=== PATIENT | male | born 1960 | race Caucasian/White ===

== ENCOUNTER 2024-07-03 15:54 | Inpatient (IN) ==
[2024-07-03 16:40] LABS: Basophils # (auto) 0.04 K/uL (0.00-0.20); Basophils % (auto) 0.5 %; Eosinophils # (auto) 0.14 K/uL (0.00-0.50); Eosinophils % (auto) 1.7 %; Hematocrit (blood only) 36.5 % (42.0-52.0); Hemoglobin 12.2 g/dl (14.0-18.0); Immature Granulocytes # (auto) 0.04 K/uL (0.01-0.20); Immature Granulocytes % (auto) 0.5 %; Lymphocytes # (auto) 1.71 K/uL (1.20-3.40); Mean Corpuscular Hgb Conc 33.4 g/dL (32.0-36.0); Mean Corpuscular Volume 83.9 fL (80.0-100.0); Mean Platelet Volume 10.2 fL (9.4-12.4); Monocytes % (auto) 7.4 %; Neutrophils # (auto) 5.62 K/uL (1.40-6.50); Neutrophils % (auto) 68.9 %; Platelet Count 296 K/uL (130-400); RDW Standard Deviation 40.1 fL (36.4-46.3); Red Blood Count 4.35 M/uL (4.70-6.10); White Blood Count 8.15 K/ul (4.8-10.8)
[2024-07-03 17:43] LABS: Albumin Globulin Ratio 1.1 (0.9-2); Albumin Level 4.4 gm/dl (3.4-5.0); BUN Creatinine Ratio 13.3 (10-20); Bilirubin,Total 0.6 mg/dl (0.2-1.0); Calcium 10.5 mg/dl (8.6-10.3); Globulin 3.9 gm/dl (2.5-4.0); Potassium 4.2 mmol/L (3.5-5.1); Total Protein 8.3 gm/dl (6.0-8.3)
--- NOTE | 2024-07-03 18:45 | History & Physical Report ---
Date of Service July 03, 2024 Assessment & Plan (1) Urinary retention: (2) Enlarged prostate: Plan: Patient is 64 year old male without prior diagnosed chronic medical conditions presented to ER with c/o abnormal outpatient labs. Outpatient labs on 07/02/24: BUN: 39, Cr: 2.5, Glucose: 598, A1c: 16, TSH: 3.1, H/H: 11.5/36. 07/02/24 PSA: 4.2 (reference range <4.1) 07/02/24 CT abdomen pelvis: IMPRESSION 1. Bilateral mild hydroureteronephrosis with marked distension of the bladder. A neurogenic bladder or bladder outlet obstruction should be considered. 2. prostate measuring 4.6 x 5.0 x 3.7 cm. 3. 7.6 cm complex cystic right renal lesion. Further evaluation with renal protocol CT or MRI abdomen with and without contrast is recommended. Today in the ER afebrile, P: 110, R: 20, BP 143/92, 96% on room air No leukocytosis, H/H: 12/36, BUN: 34,: 2.5, glucose: 464, Ca: 10.5 UA not consistent with infection In ER Ramos catheter placed Initial output 2 L Patient has continued to have additional 650 mL urine output that is now with hematuria. Suspect likely from trauma of Ramos insertion. Continue Ramos and monitor output and hematuria Plan to start Flomax Urology consult (3) JOSE (acute kidney injury): Plan: BUN: 34, creatinine: 2.5 Likely secondary to obstruction Ramos cath placed and is draining Monitor renal functions, avoid nephrotoxic agents when possible Consider nephrology consult if no improvement (4) Renal lesion: Plan: 07/02/24 CT abdomen pelvis: IMPRESSION 1. Bilateral mild hydroureteronephrosis with marked distension of the bladder. A neurogenic bladder or bladder outlet obstruction should be considered. 2. prostate measuring 4.6 x 5.0 x 3.7 cm. 3. 7.6 cm complex cystic right renal lesion. Further evaluation with renal protocol CT or MRI abdomen with and without contrast is recommended. Obtain renal CT to further assess Urology consult (5) Hyperglycemia: Plan: Random glucose: 464. VBG: pH: 7.48. normal bicarb and no anion gap A1c: 16 on 07/02/24 Uncontrolled newly diagnosed diabetes 1L NSS Start basal bolus insulin Glycemic pharmacy consult mdm developer (6) Elevated blood pressure reading: Plan: In ER pt hypertensive BP 143/92, 165/106 Patient reports is anxious and was having discomfort prior to Ramos placement. In clinic yesterday BP 136/89, Pulse: 102 Monitor BP may need to add antihypertensive agent #Tachycardia Appears sinus tachycardia on monitor EKG obtained and at that time sinus rhythm, rate 97 per my interpretation Denies CP, SOB, palpitations DVT Prophylaxis SCDs for now given hematuria Admit telemetry Full Code as per discussion with pt, however reports would not want prolonged intubation/ventilation if poor prognosis Just established with [facility] clinic for routine care Pt was seen and care coordinated with Dr Dennis. See addendum I spent a total of 75 minutes reviewing notes, outpatient records, labs, medication, coordinating, documenting and providing care for this patient excluding time spent in the performance of separately billed services and excluding time spent by another provider/QHP. History of Present Illness Chief Complaint: abnormal labs Primary Care Provider: Nicholas Meza MD Patient is 64 year old male without prior diagnosed chronic medical conditions presented to ER with c/o abnormal outpatient labs. Per outpatient chart review patient was seen as new patient yesterday 07/02/24 at [facility] after not being seen for years. Patient reports 30 pound weight loss over past year. States food not tasting good to him anymore. He reports he suspected his BSG elevated as he has been having some intermittent blurry vision and having pain and tingling in both feet for months. Since he suspected elevated glucose he has been trying to avoid sugar and eat more vegetables but reports does not like the taste of vegetables. He states he just doesn't want to prepare meals so often doesn't eat much. He states he has been under a lot of stress over the past several years with the passing of his father and stress with his father's estate. Reports been having constipation for past 6-7 months. Reported urinary incontinence for past several months. States abdomen only feels uncomfortable when dog jumps on his abdomen. He states has been feeling more fatigued and generally more weak. Yesterday in outpatient clinic there was concern for palpated abdominal mass and concern for undiagnosed DM and labs and CT abd/pelvis ordered. Today labs reviewed and patient referred to ER for JOSE, hyperglycemia, and CT abd/pelvis with bladder distension and concern for obstruction. Denies fever/chills, diaphoresis, N/V/D, JOINER, dizziness, syncope, neck pain, CP, SOB, palpitations, cough, sore throat, rhinorrhea, back pain, extremity edema, rashes, dysuria, hematuria. Allergies Allergy/AdvReac Type Severity Reaction Status Date / Time No Known Allergies Allergy Unverified 07/03/24 18:41 Home Medications Medication Instructions Recorded Confirmed Type dflxuaupivlj-tal-[id number] acid-vit 1 tab PO DAILY 07/03/24 07/03/24 History K-lycop 400 mcg-20 mcg-370 mcg tablet (Men's 50 Plus Multivitamin) Past Med/Surg History Problem List (Updated 07/03/24 @ 23:20 by Abdias Villarreal MD) JOSE (acute kidney injury) (Acute) Hyperglycemia (Acute) Elevated blood pressure reading Renal lesion Enlarged prostate Urinary retention Surgical History History of wisdom tooth extraction Family History Father Prostate cancer Brother Prostate cancer Mother Lung cancer Social History Smoking Status: Never smoker Hx Alcohol Use: No Hx Substance Use: No Preferred Language: Albanian 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: No Beliefs That Will Affect Care: None Current Living Situation: Alone Feels Safe at Home: Yes Assistive Devices: Glasses Review of Systems Review of Systems: All systems reviewed & are unremarkable except as noted in HPI & below Physical Exam Physical Exam: General: +anxious and somewhat tearful and voices is overwhelmed with recent events but otherwise no distress, WDWN Head: normocephalic, atraumatic Eyes: conjunctiva non-injected, anicteric ENT: normal inspection external ears, nose, mucous membranes dry Neck: supple, trachea midline, non-tender Lungs: clear, no respiratory distress, no wheezing/rhonchi/rales CV: tachycardic, rate 104, regular rhythm, no murmur, no pretibial edema Abd: normal BS, soft, non-tender to palpation at this time. +Ramos catheter in place with noted hematuria, no CVA tenderness Ext: no cyanosis, no calf tenderness Neuro: A&O x 3, no focal deficits noted, anxious affect Skin: warm, dry Results & Data Results & Data Vital Signs (Past 12 Hours) Vital Signs Temp Pulse Pulse Resp BP BP Pulse Ox 07/03/24 18:08 99 H 07/03/24 18:03 103 H 18 172/104 H 99 07/03/24 15:58 36.8 C 110 H 20 143/92 H 96 O2 Del Method 07/03/24 18:08 07/03/24 18:03 07/03/24 15:58 Room Air Laboratory Results Short CBC 07/03/24 Range/Units 16:28 WBC 8.15 (4.8-10.8) K/ul Hgb 12.2 L (14.0-18.0) g/dl Hct 36.5 L (42.0-52.0) % Plt Count 296 (130-400) K/uL BMP 07/03/24 16:28 Sodium 134 L Potassium 4.2 Chloride 96 L Carbon Dioxide 29 BUN 34 H Creatinine 2.56 H Glucose 464 H* Calcium 10.5 H Liver Function 07/03/24 Range/Units 16:28 Total Bilirubin 0.6 (0.2-1.0) mg/dl AST 17 (13-39) U/L ALT 15 (7-52) U/L Alkaline Phosphatase 105 H (34-104) U/L Albumin 4.4 (3.4-5.0) gm/dl Urine 07/03/24 Range/Units 18:40 Urine Color Yellow Urine Appearance Clear (Clear) Urine pH 7.5 (4.5-7.5) Ur Specific [place] 1.015 (1.000-1.030) Urine Protein 1+ H (Negative) Urine Glucose (UA) 2+ H (Negative) ECG Additional Comments: EKG: sinus rhythm, rate 97 Supervising Physician Co-Signing Physician Notes Pt was seen and examined by myself, Arely Deutsch MD on the day of service. Care was coordinated with EMA BrunoC. 64yoM who states he has not seen a doctor for many years due to financial concerns. Saw his PCP after getting medicaid insurance approval and had a CT scan noting an enlarged prostate with bilateral hydro and bladder distention. Ramos placement in the ED, hematuria, urology consult Also with elevated glucose levels, hyperglycemia protocol. Noted concerning facial papule, appears pearly with scabbing in the center- will need outpt followup and biopsy to rule out malignancy such as BCC/SCC Otherwise as above. I spent a total [id number] coordinating, documenting, and providing care for this patient excluding time spent in the performance of separately billed services
[2024-07-03 19:39] LABS: Base Excess VBG 5.8 mEq/L; HCO3 VBG 30 mmol/L; Oxygen Saturation VBG < 60.0 %; PCO2 VBG 40 mmHg (38-50); PO2 VBG 29 mmHg; pH VBG 7.48 (7.36-7.41)
[2024-07-03] MEDS: SODIUM CHLORIDE 0.9% 1,000 ML IV ONE ×2 (19:48→19:49)
[2024-07-03] MEDS: SODIUM CHLORIDE 0.9% 500 ML IV ONE (19:48)
[2024-07-03 19:50] LABS: Magnesium 2.2 mg/dl (1.7-2.4)
[2024-07-03 19:53] LABS: Appearance Urine Clear (Clear); Bacteria Urine Automated None Seen (None Seen); Bilirubin Urine Negative (Negative); Blood Urine 3+ (Negative); Color Urine Yellow; Epithelial Cell Urine Auto 0-2 /hpf (0-2); Glucose Urine UA 2+ (Negative); Ketones Urine Negative (Negative); Leukocyte Esterase Urine Negative (Negative); Nitrite Urine Negative (Negative); Protein Urine 1+ (Negative); RBC Urine Automated >20 /hpf (0-2); Specific Gravity Urine 1.015 (1.000-1.030); Urobilinogen Urine Negative (Negative); pH Urine 7.5 (4.5-7.5)
--- NOTE | 2024-07-03 21:17 | Urology Consultation ---
<Statement entered by Stef Ortiz MD - 07/04/24 10:51> I have discussed Mr. Dominguez's case with Candido Wayne PA-C and agree with the above documentation. Urinary retention now managed with indwelling Ramos catheter. Would recommend that he start tamsulosin. Catheter should stay in for approximately 1-2 weeks for bladder rest. Voiding trial will be coordinated in the office. CT scan demonstrated possible cystic lesion of his kidney. Will plan to further evaluate as an outpatient. -Stef Ortiz MD. Date of Consultation July 03, 2024 Assessment & Plan (1) Urinary retention: Patient has been admitted to the hospitalist service. From a urologic perspective we recommend following: Patient has had a Ramos catheter placed as previously noted. Would recommend maintaining Ramos catheter for several days Primary service has indicated that they plan on initiating Flomax Once patient's bladder is adequately rested and Flomax has been initiated consideration be given to performing a voiding trial Would recommend monitoring patient's renal function and avoiding nephrotoxins I discussed with the patient that we can monitor his symptoms and see if he can void with the initiation of Flomax I did discuss with patient that if Flomax does not provide adequate relief of his symptoms and he cannot void adequately consideration may be given to performing surgical intervention such as TURP, but the need for this is yet to be determined Recommend obtaining adequate control of patient's diabetes but this will be deferred to the medical service Additional recommendations be forthcoming based on his clinical course as it unfolds History of Present Illness Reason for Consultation: Urinary retention History of Present Illness This is a 64-year-old male who presented to the emergency department secondary to the recommendation of his primary care team. The patient says he was seeing his primary care physician recently and upon palpation of his abdomen there was concern the patient may have had a bladder mass. Patient underwent a CT scan of the abdomen pelvis on 07/02/2024 which showed bilateral hydroureteronephrosis with marked distention of the bladder. Patient was also noted to have an enlarged prostate measuring 4.6 x 5 x 3.7 cm. In addition the patient was noted to have a 7.6 cm cystic lesion of the right kidney. The patient was referred to the emergency department due to the above-noted findings. He did have labs which I independently reviewed demonstrating his CBC were white blood cell count and platelet count were normal. Hemoglobin and hematocrit were 12.2 and 36.5. Chemistry profile showed sodium is 134 with a normal potassium. His BUN and creatinine were elevated at 34 and 2.5. It is also noted that the patient had a glucose level of 464. The urinalysis showed 6-10 white blood cells per high-power field but was otherwise not indicative of infection. In the emergency department the patient had a Ramos catheter placed with approximately 2 L of urine was initially obtained. The urine was initially clear but some blood-tinged urine was noted. Urology was asked to see the patient due to the above-noted issues. The patient notes that since December 2023 he has had symptoms of incomplete bladder emptying as well as overflow incontinence symptoms. He has no history of kidney stones and denies dysuria. He denies previous episodes of hematuria. He notes that he does have urinary frequency particularly after voiding. He notes that his urine stream is decreased from what he previously noted. He also denies any back pain. He denies any fevers, shakes, or chills. He denies history of hypertension but does report that he was diagnosed with diabetes but is currently not take any medications for this. At the time of my interview the patient was resting comfortably in bed he was in no distress. Allergies Allergy/AdvReac Type Severity Reaction Status Date / Time No Known Allergies Allergy Unverified 07/03/24 18:41 Home Medications Medication Instructions Recorded Confirmed Type ieiubdyxmlgy-owi-qefmx acid-vit 1 tab PO DAILY 07/03/24 07/03/24 History K-lycop 400 mcg-20 mcg-370 mcg tablet (Men's 50 Plus Multivitamin) Patient History Surgical History History of wisdom tooth extraction Family History Father Prostate cancer Brother Prostate cancer Mother Lung cancer Social History Smoking Status: Never smoker Preferred Language: Slovak Feels Safe at Home: Yes Review of Systems Review of Systems: All systems reviewed & are unremarkable except as noted in HPI & below Physical Exam Constitutional: WD/WN, vitals as above Eyes: Wears glasses ENMT: Ears: no hearing impairment and no external ear abnormality Mouth: no oropharynx abnormality Neck: trachea midline Respiratory: normal respiratory effort; no respiratory distress and no labored breathing Cardiovascular: Rate/Rhythm: regular rate and regular rhythm Gastrointestinal (Abdomen): Abdomen is soft without distention. There is no areas of pain noted with palpation. There is no rebound tenderness or guarding Musculoskeletal: No calf tenderness Skin: no rashes Neurologic: moves all extremities Psychiatric: A+Ox3, euthymic affect Genitourinary: No CVA tenderness with percussion bilaterally. Patient had Ramos catheter placed draining blood-tinged urine. Results & Data Vital Signs (Past 12 Hours) Vital Signs Temp Pulse Pulse Resp BP BP Pulse Ox 07/03/24 19:00 100 H 18 165/106 H 96 07/03/24 18:08 99 H 07/03/24 18:03 103 H 18 172/104 H 99 07/03/24 15:58 36.8 C 110 H 20 143/92 H 96 O2 Del Method 07/03/24 19:00 07/03/24 18:08 07/03/24 18:03 07/03/24 15:58 Room Air PG Care Time/CCT Total # of Minutes Spent Total Time Spent with Patient: Total time spent is greater than 50% in coordination of care (as documented) at patient's floor/unit and/or counseling patient: Coding Level of Care Code 63180 OFFICE CONSULT LVL M Diagnoses Urinary retention R33.9
[2024-07-03] MEDS ORDERED: POLYETHYLENE (MIRALAX) 17 GM PACK PO PRN (21:46)
[2024-07-03] MEDS ORDERED: ONDANSETRON INJ 2 MG/ML 2 ML VIAL IV PRN (21:46)
[2024-07-03] MEDS ORDERED: ACETAMINOPHEN 325 MG TAB PO PRN (21:46)
[2024-07-03] MEDS ORDERED: GLUCOSE 10 TAB/TUBE PO PRN (21:46)
[2024-07-03] MEDS ORDERED: DEXTROSE 50% 50 ML SYRINGE IV PRN (21:46)
[2024-07-03] MEDS ORDERED: CARBOHYDRATES FOR HYPOGLYCEMIA PO PRN (21:46)
[2024-07-03] MEDS ORDERED: PHARMACY GLYCEMIC MGMT CONSULT PRN (21:46)
[2024-07-03] MEDS ORDERED: GLUCOSE 40% GEL 15 GM TUBE PO PRN (21:46)
[2024-07-03] MEDS ORDERED: LABETALOL HCL IV 5 MG/ML 20ML IV PRN (21:46)
[2024-07-03] MEDS ORDERED: GLUCAGON FOR INJ 1 MG VIAL SQ PRN (21:46)
--- NOTE | 2024-07-03 21:48 | CT Scan Report ---
Exam(s): CT RENAL Without Contrast EXAM: CT Abdomen and Pelvis Without Intravenous Contrast, Renal Stone Protocol CLINICAL HISTORY: Reason for exam: right renal lesion. TECHNIQUE: Axial computed tomography images of the abdomen/kidneys without intravenous contrast using renal protocol. CTDI is 51 mGy and DLP is 913. 65 mGy-cm. Automated exposure control was utilized for the study. A dose lowering technique was utilized adhering to the principles of ALARA. IV contrast is present, may be from a prior study. Moderate breathing motion artifact. Pelvis is not included and scanned [id number]. COMPARISON: None. FINDINGS: Lung bases: Clear. Liver: Unremarkable. Gallbladder and bile ducts: No ductal dilation. Pancreas: No ductal dilation, or acute pancreatitis. Spleen: Unremarkable. Adrenals: Unremarkable. Kidneys and ureters: Mild to moderate bilateral hydroureteronephrosis, etiology not ascertained, may be secondary to abnormality in the bladder/pelvis which is not included in the [id number]. There is contrast staining of the renal cortex, on this noncontrast exam, likely from prior study, it could indicate acute renal failure disease as ATN or JOSE. There are 2 cystic lesions in the right kidney, 3.3 x 2.5 x 2.2 cm in the upper pole, and a larger measuring 7.2 x 7.2 x 6.4 cm, which are nonspecific, as they show some complex features such as internal high density. Consider ultrasound right kidney for further evaluation. If ultrasound is already been performed, MRI kidneys with and without contrast may be considered. Stomach and bowel: No obstruction. Intraperitoneal space: No free air or fluid. Bones/joints: No acute fracture. Soft tissues: Unremarkable. Vasculature: No aortic aneurysm. Lymph nodes: No enlarged lymph nodes. Bladder: Not included Reproductive: Not included IMPRESSION: 1. There are 2 cystic lesions in the right kidney, larger 7.2 cm, both of these show some high density internally, could reflect complex cysts, consider ultrasound and/or MRI kidneys for further evaluation. 2. Bilateral hydroureteronephrosis and contrast staining of the kidneys, see above discussion. Electronically signed by: Kenyatta Singer M.D. 07/03/24 21:47 PM
[2024-07-03] MEDS: TAMSULOSIN HCL 0.4 MG CAP PO SCH (22:46)
[2024-07-03] MEDS: LANTUS PER UNIT CHARGE SQ SCH (22:48)
[2024-07-03] MEDS: INSULIN ASPART PER UNIT CHARGE SC SCH (22:49)
--- NOTE | 2024-07-03 23:21 | Emergency Department Note ---
History of Present Illness General Chief complaint: Urinary Symptoms Stated complaint: REF DY DOC,KIDNEY FAILURE,URINARY ISSUES Time Seen by Provider: 07/03/24 17:53 History of Present Illness Provider complaint: Weakness 64-year-old male presents emergency department for weakness. Patient reports he was sent here by his PCP at [facility]. Patient states he has not had health insurance for quite some time and finally got some and then went to see his PCP yesterday because since November he has been feeling increasingly weak and having urinary incontinence only at night. Reports no fevers falls or traumas. No melena hematochezia hematuria or dysuria. Patient states that his PCP did an outpatient CAT scan and blood work and then told him to come to the emergency department. Home Medications Medication Instructions Recorded Confirmed Type axnpndcktpeo-udu-ipwuw acid-vit 1 tab PO DAILY 07/03/24 07/03/24 History K-lycop 400 mcg-20 mcg-370 mcg tablet (Men's 50 Plus Multivitamin) Allergies Allergy/AdvReac Type Severity Reaction Status Date / Time No Known Allergies Allergy Unverified 07/03/24 18:41 Past Med/Surg History Problem List (Updated 07/03/24 @ 23:20 by Abdias Villarreal MD) JOSE (acute kidney injury) (Acute) Hyperglycemia (Acute) Elevated blood pressure reading Renal lesion Enlarged prostate Urinary retention Surgical History History of wisdom tooth extraction Family History Father Prostate cancer Brother Prostate cancer Mother Lung cancer Social History Smoking Status: Never smoker Hx Alcohol Use: No Hx Substance Use: No Preferred Language: Djib[place]ian [employer] Required: No Beliefs That Will Affect Care: None Current Living Situation: Alone Feels Safe at Home: Yes Assistive Devices: Glasses Physical Exam Vital Signs Vital Signs - 24 hr 07/03/24 15:58 07/03/24 18:03 07/03/24 18:08 Temperature 36.8 C Temperature Source Temporal Artery Scan Pulse Rate 110 H 99 H Pulse Rate [Apical] 103 H Respiratory Rate 20 18 Respiratory Effort / Characteristics Non-Labored Respiratory Depth Normal Blood Pressure 143/92 H Blood Pressure [Right Arm] 172/104 H Blood Pressure Mean 109 Blood Pressure Mean [Right Arm] 126 Pulse Oximetry 96 99 Oxygen Delivery Method Room Air Sepsis Recent Fever Within 48 Hours No Sepsis New/Unexplained Change in Mental Status No Sepsis Action Taken by Nursing No Action Required 07/03/24 19:00 Temperature Temperature Source Pulse Rate Pulse Rate [Apical] 100 H Respiratory Rate 18 Respiratory Effort / Characteristics Respiratory Depth Blood Pressure Blood Pressure [Right Arm] 165/106 H Blood Pressure Mean Blood Pressure Mean [Right Arm] 125 Pulse Oximetry 96 Oxygen Delivery Method Sepsis Recent Fever Within 48 Hours Sepsis New/Unexplained Change in Mental Status Sepsis Action Taken by Nursing Physical Exam GENERAL: oriented to person, place, and time. appears well-developed and well- nourished. She does not appear distressed. HENT: Exam performed. -Head: Normocephalic and atraumatic. -Right Ear: External ear normal. No mastoid erythema -Left Ear: External ear normal. No mastoid erythema -Mouth/Throat: The oropharynx is clear and moist. No trismus in the jaw. No dental abscesses or uvula swelling. No oropharyngeal exudate or tonsillar abscesses. EYES: Conjunctivae and EOM are normal.Right eye exhibits no discharge. Left eye exhibits no discharge. No scleral icterus. NECK: Normal range of motion. Neck supple. No JVD present. No tracheal deviation and normal range of motion present. CV: Normal rate, regular rhythm, normal heart sounds and intact distal pulses. There is no peripheral edema. Palpable radial pulses bue. PULM/CHEST: Effort normal and breath sounds normal. No respiratory distress. No stridor. no wheezes.no rales. -Chest Wall: no tenderness to palpation ABD: The abdomen is soft. Bowel sounds are normal. There is tenderness to palpation of the suprapubic area. There is no rebound, no guarding MUSC/SKEL: Normal range of motion. There is no peripheral edema, tenderness or deformity. NEURO: Motor and sensation grossly intact. SKIN: Skin is warm and dry. not diaphoretic. PSYCH: normal mood and affect. Behavior is normal. Judgment and thought content normal. Course Course 1752: The patient was evaluated in room B11. A complete history and physical exam was performed Cardiac monitoring: An order was placed for continuous cardiac monitoring. The monitor shows a rate of 100 with sinus rhythm interpreted by me Patient was seen during a time of extreme volume and extreme acuity in the emergency department. Nursing triage protocols were initiated and labs were drawn by protocol in the triage area. Labs show a white blood cell count of 8.15. Creatinine 2.56. External medical records were obtained by the psychiatric case management manager and Mala from the [facility] system. Patient had blood work done from yesterday which showed a creatinine of 2.5 and a BUN of 39. Patient's glucose was 598. White blood cell count was 8.26 hemoglobin 11.5. Patient had a CT abdomen pelvis performed yesterday as well which showed bilateral mild hydroureteronephrosis with marked distention of the bladder neurogenic bladder bladder outlet obstruction should be considered with prostate measuring 4.6 x 5 x 3.7 cm and eight 7.6 endometrial complex right cystic lesion. Bladder scan was performed on the patient which showed greater than 1 L of urine in his bladder. Ramos catheter was placed which drained more than 1500 cc of urine. [facility] Administered Medications Insulin Aspart (Insulin Aspart Per Unit Charge) 0 units SC ACHS AMBER Stop: 08/02/24 21:45 Last Admin: 07/03/24 22:49 Dose: 19 units Documented By: ANASTACIA Co-signed By: BENITO Insulin Glargine (Lantus Per Unit Charge) 16 units SQ BID AMBER Stop: 08/02/24 21:45 Last Admin: 07/03/24 22:48 Dose: 16 units Documented By: ANASTACIA Co-signed By: BENITO Tamsulosin HCl (Tamsulosin Hcl 0.4 Mg Cap) 0.4 mg PO QAM AMBER Stop: 08/02/24 21:45 Last Admin: 07/03/24 22:46 Dose: 0.4 mg Documented By: ANASTACIA Discontinued Medications Sodium Chloride (Nss) 1,000 mls @ 999 mls/hr IV .Q1H1M ONE Stop: 07/03/24 20:32 Last Admin: 07/03/24 19:48 Dose: Not Given Documented By: JESSIE Sodium Chloride (Nss) 500 mls @ 999 mls/hr IV .Q31M ONE Stop: 07/03/24 20:07 Last Admin: 07/03/24 19:48 Dose: Not Given Documented By: ANTONYD Sodium Chloride (Nss) 1,000 mls @ 999 mls/hr IV .Q1H1M ONE Stop: 07/03/24 20:47 Last Infusion: 07/03/24 20:50 Dose: Infused Documented By: Admin: 07/03/24 19:49 Dose: 999 mls/hr Documented By: JESSIE Medical Decision Making Laboratory Data Attestation: I reviewed the patient's lab results. 07/03/24 16:28 07/03/24 16:28 Lab Results 07/03/24 07/03/24 Range/Units 16: 18:40 WBC 8.15 (4.8-10.8) K/ul RBC 4.35 L (4.70-6.10) M/uL Hgb 12.2 L (14.0-18.0) g/dl Hct 36.5 L (42.0-52.0) % MCV 83.9 (80.0-100.0) fL MCH 28.0 (25.0-34.0) pg MCHC 33.4 (32.0-36.0) g/dL RDW Std Deviation 40.1 (36.4-46.3) fL RDW Coeff of Johnson 13.0 (11.5-14.5) % Plt Count 296 (130-400) K/uL MPV 10.2 (9.4-12.4) fL Immature Gran % (Auto) 0.5 % Neut % (Auto) 68.9 % Lymph % (Auto) 21.0 % Wagoner % (Auto) 7.4 % Eos % (Auto) 1.7 % Baso % (Auto) 0.5 % Neut # (Auto) 5.62 (1.40-6.50) K/uL Lymph # (Auto) 1.71 (1.20-3.40) K/uL Wagoner # (Auto) 0.60 H (0.11-0.59) K/uL Eos # (Auto) 0.14 (0.00-0.50) K/uL Baso # (Auto) 0.04 (0.00-0.20) K/uL Immature Gran # (Auto) 0.04 (0.01-0.20) K/uL Sodium 134 L (136-145) mmol/L Potassium 4.2 (3.5-5.1) mmol/L Chloride 96 L (98-107) mmol/L Carbon Dioxide 29 (21-32) mmol/L Anion Gap 9 (3-11) BUN 34 H (6-23) mg/dl Creatinine 2.56 H (0.6-1.4) mg/dl Est Cr Clr Drug Dosing 32.0 ml/min eGFR 27.20 BUN/Creatinine Ratio 13.3 (10-20) Glucose 464 H* (70-99(Fasting)) mg/dl Calcium 10.5 H (8.6-10.3) mg/dl Phosphorus 4.0 (2.5-4.9) mg/dl Magnesium 2.2 (1.7-2.4) mg/dl Total Bilirubin 0.6 (0.2-1.0) mg/dl AST 17 (13-39) U/L ALT 15 (7-52) U/L Alkaline Phosphatase 105 H (34-104) U/L Total Protein 8.3 (6.0-8.3) gm/dl Albumin 4.4 (3.4-5.0) gm/dl Globulin 3.9 (2.5-4.0) gm/dl Albumin/Globulin Ratio 1.1 (0.9-2) Lipase 35 (11-82) U/L Urine Color Yellow Urine Appearance Clear (Clear) Urine pH 7.5 (4.5-7.5) Ur Specific Nice 1.015 (1.000-1.030) Urine Protein 1+ H (Negative) Urine Glucose (UA) 2+ H (Negative) Urine Ketones Negative (Negative) Urine Blood 3+ H (Negative) Urine Nitrite Negative (Negative) Urine Bilirubin Negative (Negative) Urine Urobilinogen Negative (Negative) Ur Leukocyte Esterase Negative (Negative) Urine WBC (Auto) 6-10 H (0-5) /hpf Urine RBC (Auto) >20 H (0-2) /hpf U Hyaline Cast (Auto) 3-5 H (0-2) /lpf U Epithel Cells (Auto) 0-2 (0-2) /hpf Urine Bacteria (Auto) None Seen (None Seen) [facility] Narrative 1753: The patient was evaluated in room B11. A complete history and physical exam was performed Cardiac monitoring: An order was placed for continuous cardiac monitoring. The monitor shows a rate of 100 with sinus rhythm interpreted by me Patient was seen during a time of extreme volume and extreme acuity in the emergency department. Nursing triage protocols were initiated and labs were drawn by protocol in the triage area. Labs show a white blood cell count of 8.15. Creatinine 2.56. External medical records were obtained by the psychiatric case management manager and Mala from the [facility] system. Patient had blood work done from yesterday which showed a creatinine of 2.5 and a BUN of 39. Patient's glucose was 598. White blood cell count was 8.26 hemoglobin 11.5. Patient had a CT abdomen pelvis performed yesterday as well which showed bilateral mild hydroureteronephrosis with marked distention of the bladder neurogenic bladder bladder outlet obstruction should be considered with prostate measuring 4.6 x 5 x 3.7 cm and eight 7.6 endometrial complex right cystic lesion. Bladder scan was performed on the patient which showed greater than 1 L of urine in his bladder. Ramos catheter was placed which drained more than 1500 cc of urine. [facility] Impression & Plan JOSE (acute kidney injury), Hyperglycemia Discharge Plan Visit Data Chief Complaint: Urinary Symptoms Stated Complaint: REF DY DOC,KIDNEY FAILURE,URINARY ISSUES ED Provider: Abdias Villarreal Discharge Problem: JOSE (acute kidney injury), Hyperglycemia Patient Disposition: Admitted As Inpatient Discharge Instructions Interventions: ED Discharge Assessment Last Done: 07/03/24 21:27
[2024-07-04] MEDS: INSULIN ASPART PER UNIT CHARGE SC SCH (01:14)
--- OUTSIDE RECORDS SUMMARY | 2024-07-04 05:47 | External Medical Summary | Summary of Care ---
Author Name Unknown Organization [facility] Address [address] [place] [address] Phone [phone] Care Team Providers Care Front Desk Administrator Name Role Phone José Roberts MD Primary Care Provider [phone] Reason for Visit * Reason Onset Date Comments Test Results 07/02/2024 CT ABD/PELVIS W IV AND W ORAL CONTRAST Encounter Details Date Type Department Care Team (Late st Contact Info) Description 07/02/[address] [facility] Lilia Godoy [address] [address] [phone] Nicholas Meza MD [address] [id number] Test Results (CT ABD/PELVIS W IV AND W ORA... Allergies Active Allergy Reactions Criticality Noted Date Comments Yellow Jacket Venom Edema Other High 12/24/2012 documented as of this encounter (statuses as of 07/03/2024) Medications Multivitamin Men 50+ Oral Tablet Take by mouth. Active Hospital, Clinic, or Other Facility Administered Medication Ordered Dose Route Frequency Start Date End Date Status sodium chloride 0.9 % flush/inj 10 mL 10 mL IV PUSH ONCE 07/02/2024 07/03/2024 Ended documented as of this encounter (statuses as of 07/03/2024) Active Problems Problem Noted Date Diagnosed Date Stress reaction 07/02/2024 Chronic idiopathic constipation 07/02/2024 Skin lesion 07/02/2024 documented as of this encounter (statuses as of 07/03/2024) Immunizations Name Administration Dates Next Due Seasonal Influenza Vac., MDV , IM, 0.5 mL (Fluzone) 12/29/2013,12/24/2012 Seasonal Influenza, PF, 6 M & above, IM , (FluLaval or Fluzone) 12/21/2020,01/14/2020,12/16/2018,2017,01/21/2017 Seasonal Influenza, Quadriva lent, No Preserve, IM 01/17/2016 01/16/2017 documented as of this encounter Social History Tobacco Use Types Packs/Day Years Used Date Smoking Tobacco: Never Passive Smoke Exposure: Never Smokeless Tobacco: Never Alcohol Use Standard Drinks/Week Comments Never 0 (1 standard drink = 0.6 oz pur e alcohol) PHQ-2 Answer Date Recorded PHQ Adult Total Score 2 07/02/2024 Hunger Vital Sign Answer Date Recorded Within the past 12 months, y ou worried that your food would run out before you got the money to buy more. Never true 07/03/19 25 Within the past 12 months, t he food you bought just didn't last and you didn't have money to get more. Never true 07/02/2024 Childcare Answer Date Recorded Do you feel overwhelmed with taking care of a child, family member or friend? No 07/02/2024 Does your family need help f inding childcare? (Household - for ages 0-17 years) Not on file 07/02/2024 Clothing Answer Date Recorded Have you been unable to get clothing when it was really needed? No 07/02/2024 Is your family able to get c lothes or diapers when needed? (Household - for ages 0-17 years) Not on file 07/02/2024 Personal Safety Answer Date Recorded Do you feel unsafe or have concerns for your saf ety? No 07/02/2024 Do you have concerns for you r family's safety? (Household - for ages 0-17 years) Not on file 07/02/2024 Utilities Answer Date Recorded Do you have trouble paying y our heating, water, or electric bill? No 07/02/2024 Is your family able to pay t he heat, water, or electric bill? (Household - for ages 0-17 years) Not on file 07/02/2024 Does your family have access to good internet? (Household - for ages 0-17 years) Not on file 07/02/2024 Employment Status Answer Date Recorded Are you unemployed or without regular income? No 07/02/2024 Does the household have a re gular source of income? (Household - for ages 0-17 years) Not on file 07/02/2024 Social Connections Answer Date Recorded How often do you feel lonely or isolated from th ose around you? Never 07/02/2024 Financial Resource Strain Answer Date R ecorded Do you have any trouble payi ng for your medications, or do you think you might in the future? No 07/02/2024 Does your family have troubl e paying for medicine? (Household - for ages 0-17 years) Not on file 07/02/2024 Transportation Needs Answer Date Record ed Do you have trouble getting a ride to medical visits or work? (Adult - for ages 18 years and over) Not on file 07/02/2024 Does your family have a hard time getting a ride to doctors visits? (Household - for ages 0-17 years) Not on file 07/02/2024 Has lack of transportation k ept you from medical appointments, meetings, work, or from getting things needed for daily living? Check all that apply. No 07/02/2024 Do you (or your family) have trouble finding or paying for a ride (transportation)? (Household - for ages 0-17 years) Not on file 07/02/2024 Housing Stability Answer Date Recorded Do you currently live in a s helter or have no steady place to sleep at night? No 07/02/2024 Do you think you are at risk of becoming homeless? (Adult - for ages 18 years and over) Not on file 07/02/2024 Does your family worry about paying for your home or becoming homeless? (Household - for ages 0-17 years) Not on file 0 07/02/2024 Are you homeless or worried that you might be in the future? No 07/02/2024 Are you (or your family) ammy eless or worried that you might be in the future? (Household - for ages 0-17 years) Not on file Food Insecurity Answer Date Recorded Within the past 12 months, y ou worried that your food would run out before you got the money to buy more. Never true 07/03/19 25 Within the past 12 months, t he food you bought just didn't last and you didn't have money to get more. Never true 07/02/2024 Do you need food for this week? No 07/02/2024 Sex and Gender Information Value Date Recorded Sex Assigned at Male 07/02/2024 10:52 AM EDT Legal Sex Male 6:12 AM EST Gender Identity Male 07/02/2024 10:52 AM EDT Sexual Orientation Straight 07/02/2024 10 :52 AM EDT documented as of this encounter Miscellaneous Notes * Telephone Encounter - Nicholas Meza MD - 07/03/2024 2:57 PM EDT Talked to pt Sending pt to ER for JOSE, kidney lesion, neurogenic bladder , uncontrolled DM hba1c more than 16, Talked to kim in [facility] ER charge nurse Notified pt is heading there by 3:30 today Please fax his all medical record to ER * Telephone Encounter - Sarahi Geller OSA - 07/03/2024 2:46 PM EDT Reason for patient's call: Pt returning missed call from Dr. Meza Caller was transferred to the nurse line. * Telephone Encounter - Nicholas Meza MD - 07/03/2024 11:50 AM EDT Pt not answering still Left a VM * Telephone Encounter - Nicholas Meza MD - 07/02/2024 6:56 PM EDT Noted and left a VM And will call pt again * Telephone Encounter - Lolis Millan OSA - 07/02/2024 6:32 PM EDT Tyler- The radiologist discovered an unexpected or indeterminate finding on Juan Dominguez ([id number]) and asks that you review the following report. Study Type:07/02/2023 Date of Study: CT ABD/PELVIS W IV AND W ORAL CONTRAST IMPRESSION 1. Bilateral mild hydroureteronephrosis with marked distension of the bladder. A neurogenic bladderor bladder outlet obstruction should be considered. 2. prostate measuring 4.6 x 5.0 x 3.7 cm. 3. 7.6 cm complex cystic right renal lesion. Further evaluation with renal protocol CT or MRI abdomen with and without contrast is recommended. Please respond to this encounter to acknowledge receipt of this message and take responsibility to ensure this report is reviewed. Thank you, BAKARI Hicks Client Service Rep [facility] documented in this encounter Plan of Treatment Upcoming Encounters Date Type Department Care Team (Late st Contact Info) Description 08/13/2024 10:40 AM EDT [facility] [address] [place] [address] [phone] Hannah Ontiveros PA-C [address] [place] [address] [place] [phone] Health Maintenance Due Date Last Done Comments HIV Screening 1975 Hepatitis C Screening 1978 DTap/Tdap Vaccines (1 - Tdap) 1979 Cologuard 2005 Colonoscopy 2005 Colorectal Cancer Screening 2005 Fecal Occult Blood Test 2005 Sigmoidoscopy 2005 Pneumococcal Vaccine: 50+ Years (1 of 1 - PCV) 2010 Zoster Vaccines (1 of 2) 2010 COVID-19 Vaccine (1 - season) 2023 Influenza Vaccine (FLU shot) (Season Ended) 2024 12/21/2020, 01/14/2020, 12/16/2018, Additional history exists Depression Screening 07/02/2025 07/02/2024 Diabetes Screening 07/03/2027 07/02/2024, 07/02/2024 Lipid Panel 07/02/2029 07/02/2024 HPV (Gardasil) Vaccine Aged Out No lo nger eligible based on patient's age to complete this topic Hepatitis B Vaccine Aged Out No longe r eligible based on patient's age to complete this topic MENINGOCOCCAL (MENACTRA/MENVEO) Aged Out No longer eligible based on patient's age to complete this topic Meningitis B Vaccine (Bexsero/Trumemba) Aged Out No longer eligible based on patient's age to complete this topic documented as of this encounter Medical Devices Not on filedocumented as of this encounter Care Teams Front Desk Administrator Relationship Specialty Start Date End Date José Roberts MD PCP - General Family Medicine 12/31/17 documented as of this encounter
--- OUTSIDE RECORDS SUMMARY | 2024-07-04 05:47 | External Medical Summary | Summary of Care ---
Author Name Unknown Organization [facility] Address [address] [place] [address] Phone [phone] Care Team Providers Care Inventory Specialist Name Role Phone José Roberts MD Primary Care Provider [phone] Reason for Visit * Reason Onset Date Comments Test Results 07/02/2024 Unexpected or In determinate Result Encounter Details Date Type Department Care Team (Late st Contact Info) Description 07/02/2024 Telephone Laboratory, [place] [address] [place] [address] Nicholas Meza MD [address] [facility] [place] [id number] Test Results (Unexpected or Indeterminate ... Allergies Active Allergy Reactions Criticality Noted Date [...] 10 mL IV PUSH ONCE 07/02/2024 07/03/2024 Active documented as of this encounter (statuses as [...] Encounter - Nicholas Meza MD - 07/02/2024 6:57 PM EDT Noted * Telephone Encounter - Barbara Belle OSA - 07/02/2024 6:29 PM EDT Hello- The radiologist discovered an unexpected or indeterminate finding on Juan Mirian Folen ([id number]) and asks that you review the following report. IMPRESSION IMPRESSION 1. Bilateral mild hydroureteronephrosis with marked distension of the bladder. A neurogenic bladderor bladder outlet obstruction should be considered. 2. prostate measuring 4.6 x 5.0 x 3.7 cm. 3. 7.6 cm complex cystic right renal lesion. Further evaluation with renal protocol CT or MRI abdomen with and without contrast is recommended. Study Type:CT ABD/PELVIS W IV AND W ORAL CONTRAST Date of Study: 07/02/2024 Please respond to this encounter to acknowledge receipt of this message and take responsibility to ensure this report is reviewed. Thank you, BAKARI Pickens Client Service Rep [facility] documented in this encounter Plan of Treatment Health Maintenance Due Date Last Done Comments Diabetes Screening 1960 Lipid Panel 1960 HIV Screening 1975 Hepatitis C Screening 1978 DTap/Tdap Vaccines (1 - Tdap) 1979 Cologuard 2005 Colonoscopy 2005 Colorectal Cancer Screening 2005 Fecal Occult Blood Test 2005 Sigmoidoscopy 2005 Pneumococcal Vaccine: 50+ Years (1 of 1 - PCV) 2010 Zoster Vaccines (1 of 2) 2010 COVID-19 Vaccine (1 - 2023- season) 2023 Influenza Vaccine (FLU shot) (Season Ended) 2024 12/21/2020, 01/14/2020, 12/16/2018, Additional history exists Depression Screening 07/02/2025 07/02/2024 HPV (Gardasil) Vaccine Aged Out No [...] filedocumented as of this encounter Care Teams Inventory Specialist Relationship Specialty Start Date End Date José Roberts MD PCP - General Family Medicine 12/31/17 documented as of this encounter
--- OUTSIDE RECORDS SUMMARY | 2024-07-04 05:47 | External Medical Summary | Summary of Care ---
Author Name Unknown Organization [facility] Address [address] [place] [address] Phone [phone] Care Team Providers Care Mend Worker Name Role Phone José Roberts MD Primary Care Provider [phone] Reason for Visit * Reason Comments Outpatient Testing Encounter Details Date Type Department Care Team (Late st Contact Info) Description 07/02/2024 11:40 AM EDT [facility] [address] [facility] [place] [phone] [facility] [address] [facility] [place] [address] Screening for cardiovascular condition; Family history of prostate cancer in father; Screening for prostate cancer; Chronic idiopathic constipation; Loss of weight; Peripheral polyneuropathy Allergies Active Allergy Reactions Criticality Noted Date Comments Yellow Jacket Venom Edema Other High 12/24/2012 documented as of this encounter (statuses as of 07/02/2024) Medications Multivitamin Men 50+ Oral Tablet Take by mouth. Active documented as of this encounter (statuses as of 07/02/2024) Active Problems Problem Noted Date Diagnosed Date Stress reaction 07/02/2024 Chronic idiopathic constipation 07/02/2024 Skin lesion 07/02/2024 documented as of this encounter (statuses as of 07/02/2024) Immunizations Name Administration Dates Next Due Seasonal [...] AM EDT documented as of this encounter Plan of Treatment Pending Results Name Type Priority Associated Diagnoses Date /Time LIPID PANEL WITH DIRECT LDL IF TG IS HIGH Lab Routine Screening for cardiovascular condition 07/02/2024 11:46 AM EDT PSA Lab Routine Family history of prostate cancer in father Screening for prostate cancer 07/02/2024 11:46 AM EDT CBC WITH WBC DIFFERENTIAL Lab Routine Chronic idiopathic constipation Loss of weight 07/02/2024 11:46 AM EDT COMPREHENSIVE METABOLIC PANEL Lab Routine Chronic idiopathic constipation Loss of weight 07/02/2024 11:46 AM EDT HEMOGLOBIN A1C Lab Routine Peripheral polyneuropathy Loss of weight 07/02/2024 11:46 AM EDT TSH WITH FREE T4 IF INDICATED Lab Routine Loss of weight 07/02/2024 11:46 AM EDT CBC Lab Routine Chronic idiopathic constipation Loss of weight 07/02/2024 11:46 AM EDT DIFFERENTIAL, AUTOMATED Lab Routine Chronic idiopathic constipation Loss of weight 07/02/2024 11:46 AM EDT Health Maintenance Due Date Last Done Comments [...] Not on filedocumented as of this encounter Visit Diagnoses Diagnosis Screening for cardiovascular condition Screening for other and unspecified cardiovascular conditions Family history of prostate cancer in father Screening for prostate cancer Special screening for malignant neoplasm of prostate Chronic idiopathic constipation Unspecified constipation Loss of weight Peripheral polyneuropathy Unspecified hereditary and idiopathic peripheral neuropathy documented in this encounter Care Teams Mend Worker Relationship Specialty Start Date End Date José Roberts MD PCP - General Family Medicine 12/31/17 documented as of this encounter
--- OUTSIDE RECORDS SUMMARY | 2024-07-04 05:47 | External Medical Summary | Summary of Care ---
Author Name Unknown Organization [facility] Address [address] [place] [address] Phone [phone] Care Team Providers Care Fish And Game Club Manager Name Role Phone José Roberts MD Primary Care Provider [phone] Reason for Visit * Reason Onset Date Comments Test Results 07/02/2024 Unexpected or In determinate Result Encounter Details Date Type Department Care Team (Late st Contact Info) Description 07/02/2024 Telephone Laboratory, [place] [address] [place] [address] Nicholas Meza MD [address] [facility] [place] [id number] Test Results (Unexpected or Indeterminate ... Allergies [...] or indeterminate finding on Juan Mirian Folen ([id number]) and asks that you review the following [...] Thank you, BAKARI Pickens Client Service Rep [facility] documented in this encounter Plan of Treatment [...] filedocumented as of this encounter Care Teams Fish And Game Club Manager Relationship Specialty Start Date End Date José Roberts MD PCP - General Family Medicine 12/31/17 documented as of this encounter
--- OUTSIDE RECORDS SUMMARY | 2024-07-04 05:47 | External Medical Summary | Summary of Care ---
Author Name Unknown Organization [facility] Address [address] [place] [address] Phone [phone] Care Team Providers Care Dredge Deckhand Name Role Phone José Roberts MD Primary Care Provider [phone] Reason for Visit * Reason Onset Date Comments Test Results 07/02/2024 Unexpected or In determinate Result Encounter Details Date Type Department Care Team (Late st Contact Info) Description 07/02/2024 Telephone Laboratory, [place] [address] [place] [address] Nicholas Meza MD [address] [facility] [place] [id number] Test Results (Unexpected or Indeterminate ... Allergies [...] or indeterminate finding on Juan Mirian Folen ([id number]) and asks that you review the following [...] Thank you, BAKARI Pickens Client Service Rep [facility] documented in this [...] filedocumented as of this encounter Care Teams Dredge Deckhand Relationship Specialty Start Date End Date José Roberts MD PCP - General Family Medicine 12/31/17 documented as of this encounter
--- OUTSIDE RECORDS SUMMARY | 2024-07-04 05:47 | External Medical Summary | Summary of Care ---
Author Name Unknown Organization [facility] Address [address] [facility] [place] [address] Phone [phone] Care Team Providers Care Forest Biometrics Professor Name Role Phone José Roberts MD Primary Care Provider [phone] Reason for Visit * Reason Onset Date Comments Test Results 07/02/2024 CT ABD/PELVIS W IV AND W ORAL CONTRAST Encounter Details Date Type Department Care Team (Late st Contact Info) Description 07/02/2024 Telephone [facility] Keagan Godoy [address] [place] [phone] Nicholas Meza MD [address] [place] [id number] Test Results (CT ABD/PELVIS W IV AND [...] Millan OSA - 07/02/2024 6:32 PM EDT Hello- The radiologist discovered an unexpected or indeterminate finding on Juan Dominguez ([id number]) and asks that you review the following [...] reviewed. Thank you, BAKARI Hicks Client Service [facility] documented in this encounter Plan of [...] filedocumented as of this encounter Care Teams Forest Biometrics Professor Relationship Specialty Start Date End Date José Roberts MD PCP - General Family Medicine 12/31/17 documented as of this encounter
--- OUTSIDE RECORDS SUMMARY | 2024-07-04 05:47 | External Medical Summary | Summary of Care ---
Author Name Unknown Organization [facility] Address [address] [facility] [place] [address] Phone [phone] Care Team Providers Care Earth Sciences Professor Name Role Phone José Roberts MD Primary Care Provider [phone] Reason for Visit * Reason Onset Date Comments Test Results 07/02/2024 CT ABD/PELVIS W IV AND W ORAL CONTRAST Encounter Details Date Type Department Care Team (Late st Contact Info) Description 07/02/2024 Telephone [facility] Lilia Godoy [address] [place] [phone] Nicholas Meza MD [address] [place] [id number] Test Results (CT ABD/PELVIS W IV AND [...] more than 16, Talked to kim in [facility] ER charge nurse Notified pt is heading [...] unexpected or indeterminate finding on Juan Dominguez ([id number]) and asks that you review the following [...] Thank you, BAKARI Hicks Client Service Rep [facility] documented in this encounter Plan of Treatment Upcoming Encounters Date Type Department Care Team (Late st Contact Info) Description 08/13/2024 10:40 AM EDT Office Visit [address] [place] [phone] Hannah Ontiveros PA-C [address] [place] [address] [place] [address] Health Maintenance Due Date Last Done Comments [...] filedocumented as of this encounter Care Teams Earth Sciences Professor Relationship Specialty Start Date End Date José Roberts MD PCP - General Family Medicine 12/31/17 documented as of this encounter
--- OUTSIDE RECORDS SUMMARY | 2024-07-04 05:47 | External Medical Summary | Summary of Care ---
Author Name Unknown Organization [facility] Address [address] [facility] [address] Phone [phone] Care Team Providers Care Liaison Inspection Laboratory Assistant Name Role Phone José Roberts MD Primary Care Provider [phone] Encounter Details Date Type Department Care Team (Late st Contact Info) Description 07/02/2024 [facility] [address] [place] [phone] [facility] [place] [address] Allergies Active Allergy Reactions Criticality Noted Date [...] Encounter - Nicholas Meza MD - 07/02/2024 5:56 PM EDT IMPRESSION 1. Bilateral mild hydroureteronephrosis with marked distension of the bladder. A neurogenic bladderor bladder outlet obstruction should be considered. 2. prostate measuring 4.6 x 5.0 x 3.7 cm. 3. 7.6 cm complex cystic right renal lesion. Further evaluation with renal protocol CT or MRI abdomen with and without contrast is recommended. No answer on phone call Left VM and will talk to pt again tomorrow Will wait for blood tests documented in this encounter Plan of Treatment [...] filedocumented as of this encounter Care Teams Liaison Inspection Laboratory Assistant Relationship Specialty Start Date End Date José Roberts MD PCP - General Family Medicine 12/31/17 documented as of this encounter
--- OUTSIDE RECORDS SUMMARY | 2024-07-04 05:47 | External Medical Summary | Summary of Care ---
Author Name Unknown Organization [facility] Address [address] [facility] [place] [address] Phone [phone] Care Team Providers Care Second Watch Sergeant Name Role Phone José Roberts MD Primary Care Provider [phone] Reason for Visit * Reason Onset Date Comments Test Results 07/02/2024 CT ABD/PELVIS W IV AND W ORAL CONTRAST Encounter Details Date Type Department Care Team (Late st Contact Info) Description 07/02/2024 Telephone [facility] Lilia Godoy [address] [place] [phone] Nicholas Meza MD [address] [place] [id number] Test Results (CT ABD/PELVIS W IV AND [...] more than 16, Talked to kim in [facility] ER charge nurse Notified pt is heading there by 3:30 today Please fax his all medical record to ER * Telephone Encounter - aSrahi Geller OSA - 07/03/2024 2:46 PM EDT [...] unexpected or indeterminate finding on Juan Dominguez ([id number]) and asks that you review the following [...] Thank you, BAKARI Hicks Client Service Rep [facility] documented in this encounter Plan of Treatment Upcoming Encounters Date Type Department Care Team (Late st Contact Info) Description 08/13/2024 10:40 AM EDT Office Visit [address] [place] [phone] Hannah Ontiveros PA-C [address] [place] [address] [place] [address] Health Maintenance Due Date Last Done Comments [...] filedocumented as of this encounter Care Teams Second Watch Sergeant Relationship Specialty Start Date End Date José Roberts MD PCP - General Family Medicine 12/31/17 documented as of this encounter
--- OUTSIDE RECORDS SUMMARY | 2024-07-04 05:47 | External Medical Summary | Summary of Care ---
Author Name Unknown Organization [facility] Address [address] [facility] [place] [address] Phone [phone] Care Team Providers Care Feeder Tender Name Role Phone José Roberts MD Primary Care Provider [phone] Reason for Visit * Reason Onset Date Comments Test Results 07/02/2024 CT ABD/PELVIS W IV AND W ORAL CONTRAST Encounter Details Date Type Department Care Team (Late st Contact Info) Description 07/02/2024 Telephone [facility] Lilia Godoy [address] [place] [phone] Nicholas Meza MD [address] [place] [id number] Test Results (CT ABD/PELVIS W IV AND [...] more than 16, Talked to kim in [facility] ER charge nurse Notified pt [...] unexpected or indeterminate finding on Juan Dominguez ([id number]) and asks that you review the following [...] Thank you, BAKARI Hicks Client Service Rep [facility] documented in this encounter Plan of Treatment Upcoming Encounters Date Type Department Care Team (Late st Contact Info) Description 08/13/2024 10:40 AM EDT Office Visit [address]ermat[address] [place] [phone] Hannah Ontiveros PA-C [address] [place] [address] [place] [address] Health Maintenance Due Date Last Done Comments [...] filedocumented as of this encounter Care Teams Feeder Tender Relationship Specialty Start Date End Date José Roberts MD PCP - General Family Medicine 12/31/17 documented as of this encounter
--- OUTSIDE RECORDS SUMMARY | 2024-07-04 05:47 | External Medical Summary | Summary of Care ---
Author Name Unknown Organization [facility] Address [address] [facility] [place] [address] Phone [phone] Care Team Providers Care Physiatrist Name Role Phone José Roberts MD Primary Care Provider [phone] Reason for Visit * Reason Onset Date Comments Test Results 07/02/2024 CT ABD/PELVIS W IV AND W ORAL CONTRAST Encounter Details Date Type Department Care Team (Late st Contact Info) Description 07/02/2024 Telephone [facility] Lilia Godoy [address] [place] [phone] Nicholas Meza MD [address] [place] [id number] Test Results (CT ABD/PELVIS W IV AND [...] more than 16, Talked to kim in [facility] ER charge nurse Notified pt is [...] unexpected or indeterminate finding on Juan Dominguez ([id number]) and asks that you review the following [...] Thank you, BAKARI Hicks Client Service Rep [facility] documented in this encounter Plan of Treatment Upcoming Encounters Date Type Department Care Team (Late st Contact Info) Description 08/13/2024 10:40 AM EDT Office Visit [address]ermatology[address] [place] [phone] Hannah Ontiveros PA-C [address] [place] [address] [place] [address] Health Maintenance Due Date Last Done Comments [...] filedocumented as of this encounter Care Teams Physiatrist Relationship Specialty Start Date End Date José Roberts MD PCP - General Family Medicine 12/31/17 documented as of this encounter
--- OUTSIDE RECORDS SUMMARY | 2024-07-04 05:47 | External Medical Summary | Summary of Care ---
Author Name Unknown Organization [facility] Address [address] [place] [address] Phone [phone] Care Team Providers Care Burr Bench Hand Name Role Phone José Roberts MD Primary Care Provider [phone] Reason for Visit * Reason Onset Date Comments Appointment 07/02/2024 LVM TO SCHED EMG Encounter Details Date Type Department Care Team (Late st Contact Info) Description 07/02/2024 Telephone [address] [place] [phone] Chin, Olaf No Resource [address] [place] [address] Appointment (LVM TO SCHED EMG) Allergies Active Allergy Reactions Criticality Noted Date [...] (FluLaval or Fluzone) 12/21/2020,01/14/2020,12/16/2018,2017,01/21/2017 Seasonal Influenza, Quadriva caridad, No Preserve, IM 01/17/2016 01/16/2017 documented as [...] encounter Miscellaneous Notes * Telephone Encounter - Magaly Hernández OSA - 07/02/2024 1:41 PM EDT LVM TO SCHED EMG documented in this encounter Plan of Treatment [...] filedocumented as of this encounter Care Teams Burr Bench Hand Relationship Specialty Start Date End Date José Roberts MD PCP - General Family Medicine 12/31/17 documented as of this encounter
--- OUTSIDE RECORDS SUMMARY | 2024-07-04 05:48 | External Medical Summary ---
Author Name Unknown Address Unknown Organization [id number]:LABORATORY [facility] - [address] [facility] [place] [address] Laboratory Report Ordering Provider Test Date Status DORENEDELRENATE 07/02/2024 11:46:54 Final Observation Date Value Abnormality Reference (Units ) Status SYNC LEUKOCYTES IN BLOOD BY AUTOMATED COUNT 07/02/2024 11:46:54 8.26 4.00-10.80 (K/uL) Final Segs 07/02/2024 11:46:54 71.4 40.0-75.0 (%) Final Lymphs % 07/02/2024 11:46:54 18.2 18.0-42.0 (%) Final Monos 07/02/2024 11:46:54 8.2 1.0-11.0 (%) Final Eosinophils 07/02/2024 11:46:54 1.3 0.0-6.0 (%) Final Basos 07/02/2024 11:46:54 0.5 0.0-2.0 (%) Final Immature Granulocyte, Percent 07/02/2024 11:46:54 0.4 0.0-2.0 (%) Final Absolute Segs 07/02/2024 11:46:54 5.90 1.80-7.70 (K/uL) Final Lymphs, absolute 07/02/2024 11:46:54 1.50 1.00-4.80 (K/ul) Final Monos, Abs 07/02/2024 11:46:54 0.68 0.00-1.10 (K/uL) Final Eos, Abs 07/02/2024 11:46:54 0.11 0.00-0.70 (K/uL) Final Basos, Abs 07/02/2024 11:46:54 0.04 0.00-0.20 (K/uL) Final Immature Granulocytes, Number 07/02/2024 11:46:54 0.03 0.00-0.20 (K/uL) Final Performing Location [facility]ORY [facility] [place] - [address] [facility] [address]
--- OUTSIDE RECORDS SUMMARY | 2024-07-04 05:48 | External Medical Summary ---
Author Name Unknown Address Unknown Organization [id number]:[facility]ORY [facility] - [address] [facility] [address] [facility] [address] Laboratory Report Ordering Provider Test Date Status RENATE GROSSMAN 07/02/2024 11:46:54 Final Observation Date Value Abnormality Reference (Units ) Status HbA1C 07/02/2024 11:46:54 16.4 Above high normal 4. 0-5.6 (%) Final The use of HbA1c to monitor glycemic status is based on normal hemoglobin and HbA composition. This test should not be used in patients with abnormal hemoglobin that affects the half life of the red blood cell or the in vivo glycation rates. Glucose, estimated average 07/02/2024 11:46:54 424 Above high normal <126 (mg/dL) Evan boothe Performing Location [facility] - [address] [facility] [address]
--- OUTSIDE RECORDS SUMMARY | 2024-07-04 05:48 | External Medical Summary | Summary of Care ---
Author Name Unknown Organization [facility] Address [address] [place] [address] Phone [phone] Care Team Providers Care Environmental Communications Specialist Name Role Phone José Roberts MD Primary Care Provider [phone] Reason for Referral * Precert (Within 10 days (routine)) - Authorized Specialty Diagnoses / Procedures Referred By Contac t Referred To Contact Radiology Diagnoses Abdominal mass, unspecified abdominal location Procedures CT ABD/PELVIS W IV AND W ORAL CONTRAST Nicholas Meza MD [address] [address] Phone: tel: fax: Referral ID Status Reason Start Date Expiration Date V isits Requested Visits Authorized [id number] Authorized 07/02/2024 08/31/2024 999 999 * Evaluate & Treat - Unlimited Visits (Within 30 days (routine)) - Pending Review Specialty Diagnoses / Procedures Referred By Daphnie t Referred To Contact Dermatology Diagnoses Skin lesion Nicholas Meza MD [facility] [place] [address] Phone: tel: fax: Referral ID Status Reason Start Date Expiration Date Visits Requested Visits Authorized [id number] Pending Review Specialty Services Required 07/02/2024 999 999 Question Answer Referral Priority Within 30 days (routine) Where should this appointment be scheduled? [facility] Are you referring the patient for Mohs Surgery and have a current positive skin cancer biopsy result? No What is the reason for the patient referral? Rash/Skin Check/Eval of Lesion or Mole * Ancillary Services (Within 30 days (routine)) - Pending Review Specialty Diagnoses / Procedures Referred By Daphnie watson Referred To Contact Gastroenterology Diagnoses Screen for colon cancer Nicholas Meza MD [address] [address] Phone: tel: fax: Referral ID Status Reason Start Date Expiration Date Visits Requested Visits Authorized [id number] Pending Review Ancillary Services Required 07/02/2024 999 999 Question Answer Referral Priority Within 30 days (routine) Where should this appointment be scheduled? [facility] Comments ALERT: Do not order for pediatric patients (18 years or younger). Cancel off screen and order PEDS GASTROENTEROLOGY CONSULT (Type: 1 visit only-Evaluate and Treat) The following Pt. Instructions are available: - Gastro Colonoscopy Prep Instructions [08842] - Gastro Colonoscopy Prep Instructions (Canadian Version) [13279] Go to the Pt. Instructions section within the Visit Navigator to access. Colonoscopy ASGE Guidelines: Average risk screening (begin at age 50, 10 year intervals) ADDITIONAL INFORMATION 1. Is the patient on Coumadin? No 2. Is the patient on Pradaxa? No Reason for Visit * Reason Comments Physical-Exam Pt here today for a complete physical Pt has concerns about his PSA and neuropathy Encounter Details Date Type Department Care Team (Late st Contact Info) Description 07/02/2024 10:40 AM EDT Office Visit [facility] [place] [address] [id number] Nicholas Meza MD [address] [id number] Well adult exam*; Screening for cardiovascular condition; Skin lesion; Chronic idiopathic constipation; Peripheral polyneuropathy; Pain in both feet; Family history of prostate cancer in father; Urinary incontinence, unspecified type; Loss of weight; Screening for prostate cancer; Screen for colon cancer; Stress reaction; Depression with anxiety; Abdominal mass, unspecified abdominal location Allergies Active Allergy Reactions Criticality Noted Date [...] Passive Smoke Exposure: Never Smokeless Tobacco: Never Tobacco Cessation:Counseling Given: No Alcohol Use Standard Drinks/Week Comments Never 0 [...] AM EDT documented as of this encounter Last Filed Vital Signs Vital Sign Reading Time Taken Comments Blood Pressure 136/89 07/02/2024 10:52 AM EDT Pulse 102 07/02/2024 10:52 AM EDT Temperature 36.8 °C (98.2 °F) 07/02/2024 10:52 AM E DT Respiratory Rate 16 07/02/2024 10:52 AM EDT Oxygen Saturation 98% 07/02/2024 10:52 AM EDT Inhaled Oxygen Concentration - - Weight 91.9 kg (202 lb 9.6 oz) 07/02/2024 10:52 AM EDT Height 182.9 cm (6') 07/02/2024 10:52 AM EDT Body Mass Index 27.48 07/02/2024 10:52 AM EDT documented in this encounter Patient Instructions * Patient Instructions* Jo Ann Kruger LPN - 07/02/2024 10:55 AM EDT Images from the original note were not included. Colorectal Cancer Screening Colorectal cancer (cancer in the colon or rectum) is a leading cause of cancer deaths in the [place] But it doesn’t have to be. When this cancer is found and removed early, the chances of a full recovery are very good. Because colorectal cancer rarely causes symptoms in its early stages, screening for the disease is important. It’s even more crucial if you have risk factors for the disease. Learn more about colorectal cancer and its risk factors. Then talk to your healthcare provider about being screened. You could be saving your own life. Risk factors for colorectal cancer Your risk of having colorectal cancer increases if you: Are 50 years of age or older Have a family history or personal history of colorectal cancer or polyps Have a personal history of type 2 diabetes, Crohn’s disease, or ulcerative colitis Have an inherited genetic syndrome like May syndrome (also known as HNPCC) or familial adenomatous polyposis (FAP) Are very overweight Are not physically active Smoke Drink a lot of alcohol Eat a lot of red or processed meat The colon and rectum Waste from food you eat enters the colon from the small intestine. As it travels through the colon,the waste (stool) loses water and becomes more solid. Intestinal muscles push it toward the sigmoid--the last section of the colon. Stool then moves into the rectum, where it’s stored until it’s ready to leave the body during a bowel movement. How cancer develops Polyps are growths that form on the inner lining of the colon or rectum. Most are benign, which means they aren’t cancerous. But over time, some polyps can become cancer (malignant). This happens when cells in these polyps begin growing abnormally. In time, malignant cells invade more and more ofthe colon and rectum. The cancer may also spread to nearby organs or lymph nodes or to other parts of the body. Finding and removing polyps can help prevent cancer from ever forming. Your screening Screening means looking for a health problem before you have symptoms. During screening for colorectal cancer, your healthcare provider will ask about your health history, examine you, and do one or more tests. History and exam The history and exam involve the following: Health history. Your healthcare provider will ask about your health history. Mention if a family member has had colon cancer or polyps. Also mention any health problems you have had in the past. Digital rectal exam (JAKE). During a JAKE, the healthcare provider inserts a lubricated gloved fingerinto the rectum. The test is painless and takes less than a minute. Healthcare providers agree thatthis test alone is not enough to screen for colorectal cancer. Screening test choices: Fecal occult blood test (FOBT) or fecal immunochemical test (FIT) These tests check for occult blood in stool (blood you can’t see). Hidden blood may be a sign of colon polyps or cancer. A small sample of stool is tested for blood in a laboratory. Most often, youcollect this sample at home using a kit your healthcare provider gives you. Follow the instructionscarefully for using this kit. You might need to avoid certain foods and medicines before the test, as directed. Barium enema with contrast (double-contrast barium enema) This test uses X-rays to provide images of the entire colon and rectum. The day before this test, you will need to do a bowel prep to clean out the colon and rectum. A bowel prep is a liquid diet plus strong laxatives or enemas. You will be awake for the test, but you may be given medicine to help you relax. At the start of the test, a radiologist (a healthcare provider who specializes in imagingtests) places a soft tube into the rectum. The tube is used to fill the colon with a contrast liquid (barium) and air. This can be uncomfortable for some people. The liquid helps the colon show up clearly on the X-rays. Because the test uses X-rays, it exposes you to a small amount of radiation. Virtual colonoscopy This exam is also called a CT colonography. It uses a series of X-ray photographs to create a 3-D view of the colon and rectum. The day before the test, you will need to do a bowel prep to clean out your colon. Your healthcare provider will give you instructions on how to do this. During the procedure, you will lie on a table that is part of a special X-ray machine called a CT scanner. A small tube will be placed into your rectum to fill the colon and rectum with air. This can be uncomfortable for some people. Then, the table will move into the machine and pictures will be taken of your colonand rectum. A computer will combine these photos to create a 3-D picture. Because the test uses X-rays, it exposes you to a small amount of radiation. Cologuard Cologuard is an easy to use, noninvasive colon cancer screening test that you can use in the privacy of your own home. It identifies altered DNA and/or blood in stool, which are associated with the possibility of colon cancer or precancer. DNA is continuously shed from cells in the intestinal lining, where it is passed into the stool. Ifcancer or precancer is present, abnormal cells will shed into the colon and stool along with normalcells. A molecular biology process is used to capture specific pieces of DNA for further analysis. Scope exams Here are two types of scope exams: Colonoscopy. This test can be used to find and remove polyps anywhere in the colon or rectum. The day before the test, you will do a bowel prep. This is a liquid diet plus a strong laxative solution or an enema. The bowel prep will cleanse your colon. You will be given instructions for this. Just before the test, you are given a medicine to make you sleepy. Then, a long, flexible, lighted tube called a colonoscope is gently inserted into the rectum and guided through the entire colon. Images ofthe colon are viewed on a video screen. Any polyps that are found are removed and sent to a lab fortesting. If a polyp can’t be removed, a sample of tissue is taken and the polyp might be removed l ater during surgery. You will need to bring someone with you to drive you home after this test. Sigmoidoscopy. This test is similar to colonoscopy, but focuses only on the sigmoid colon and rectum. As with colonoscopy, bowel prep must be done the day before this test. It might not need to be ascomplete as the bowel prep for a colonoscopy. You are awake during the procedure, but you may be given medicine to help you relax. During the test, the healthcare provider guides a thin, flexible, lighted tube called a sigmoidoscope through your rectum and lower colon. The images are displayed on avideo screen. Polyps are removed, if possible, and sent to a lab for testing. Colonoscopy is the only screening test that lets your healthcare provider see the entire colon and rectum. This test also lets your healthcare provider remove any pieces of tissue that need to be looked at by a lab. If something suspicious is found using any other tests, you will likely need a colonoscopy. When to call your healthcare provider after a test Call your healthcare provider if you have any of the following after any screening test: Bleeding Fever of 100.4°F (38°C) or higher, or as directed by your healthcare provider Abdominal pain Vomiting Date Last Reviewed: 02/02/2015 © [employer]. [address] [place] [address], [place] [address]. All rights reserved. This information is not intended as a substitute for professional medical care. Always follow your healthcare professional's instructions. documented in this encounter Progress Notes * Nicholas Meza MD - 07/02/2024 11:27 AM EDT Images from the original note were not included. Subjective Juan Dominguez is a 64 year old male. Chief Complaint Patient presents with Physical-Exam Pt here today for a complete physical Pt has concerns about his PSA and neuropathy HPI: Patient is new here for PCP establishment and for medical management of known PMH as below. Text in this note was generated using an [employer] documentation service. I discussed the use of a device to record and summarize our discussion today. All persons present during the encounter consented to its use History of Present Illness The patient, who has recently acquired medical insurance, presents with multiple health concerns that have developed over the past year. The patient reports significant weight loss, urinary incontinence, severe constipation, and foot pain. The urinary incontinence and foot pain started around the same time last year, following a period of intense stress. The patient describes the foot pain as varying in intensity and location, sometimes feeling like "two [place] Americans are taking giant clamshells and trying to cut my feet at the ankles." The patient also reports occasional blurry vision, hxof cataract and a skin lesion under the eye that has been present for about seven years. The patient has a family history of prostate cancer and is concerned about this given the recent urinary symptoms. The patient also mentions a possible abdominal mass, which causes discomfort when pressed. PMH: Patient Active Problem List Diagnosis Stress reaction Chronic idiopathic constipation Skin lesion Current Outpatient Medications Medication Sig Dispense Refill Multivitamin Men 50+ Oral Tablet Take by mouth. No current facility-administered medications for this visit. No past medical history on file. No past surgical history on file. Review of patient's allergies indicates: Allergen Reactions Yellow Jacket Venom Edema Other No family history on file. No family status information on file. Social History Socioeconomic History Marital status: Single Spouse name: Not on file Number of children: Not on file Years of education: Not on file Highest education level: Not on file Occupational History Not on file Tobacco Use Smoking status: Never Passive exposure: Never Smokeless tobacco: Never Vaping Use Vaping status: Never Used Substance and Sexual Activity Alcohol use: Never Drug use: Never Sexual activity: Not on file Other Topics Concern Not on file Social History Narrative Not on file Social Needs Financial Resource Strain: Low Risk (07/02/2024) Financial Resource Strain Do you have any trouble paying for your medications, or do you think you might in the future? (Adult - for ages 18 years and over): No Does your family have trouble paying for medicine? (Household - for ages 0-17 years): Not on file Food Insecurity: No Food Insecurity (07/02/2024) Food Insecurity Worried About Running Out of Food in the Last Year: Never true Ran Out of Food in the Last Year: Never true Do you need food for this week? (Adult - for ages 18 years and over): No Transportation Needs: No Transportation Needs (07/02/2024) Transportation Needs Do you have trouble getting a ride to medical visits or work? (Adult - for ages 18 years and over):Not on file Does your family have a hard time getting a ride to doctors’ visits? (Household - for ages 0-17 years): Not on file Has lack of transportation kept you from medical appointments, meetings, work, or from getting things needed for daily living? Check all that apply. (Adult - for ages 18 years and over): No Do you (or your family) have trouble finding or paying for a ride (transportation)? (Household - for ages 0-17 years): Not on file Social Connections: Socially Integrated (07/02/2024) Social Connections How often do you feel lonely or isolated from those around you? (Adult - for ages 18 years and over): Never Housing Stability: Low Risk (07/02/2024) Housing Stability Do you currently live in a nursing home or have no steady place to sleep at night? (Adult - for ages 18 years and over): No Do you think you are at risk of becoming homeless? (Adult - for ages 18 years and over): Not on file Does your family worry about paying for your home or becoming homeless? (Household - for ages 0-17 years): Not on file Are you homeless or worried that you might be in the future? (Adult - for ages 18 years and over): No Are you (or your family) homeless or worried that you might be in the future? (Household - for ages0-17 years): Not on file Objective BP 136/89 | Pulse 102 | Temp 98.2 °F (36.8 °C) (Tympanic) | Resp 16 | Ht 6' (1.829 m) | Wt 202 lb9.6 oz (91.9 kg) | SpO2 98% | BMI 27.48 kg/m² | BSA 2.16 m² Physical Exam Constitutional: General: He is not in acute distress. Appearance: Normal appearance. He is not ill-appearing, toxic-appearing or diaphoretic. HENT: Head: Nose: Nose normal. Eyes: Extraocular Movements: Extraocular movements intact. Cardiovascular: Rate and Rhythm: Normal rate and regular rhythm. Pulses: Normal pulses. Heart sounds: Normal heart sounds. No murmur heard. Pulmonary: Effort: Pulmonary effort is normal. No respiratory distress. Breath sounds: Normal breath sounds. No stridor. No wheezing, rhonchi or rales. Chest: Chest wall: No tenderness. Abdominal: Palpations: Abdomen is soft. There is mass. Tenderness: There is abdominal tenderness in the suprapubic area. Musculoskeletal: General: Tenderness (feet) present. Cervical back: Normal range of motion. Right lower leg: No edema. Left lower leg: No edema. Lymphadenopathy: Cervical: No cervical adenopathy. Skin: Findings: Lesion present. Neurological: Mental Status: He is alert and oriented to person, place, and time. Sensory: Sensory deficit present. Gait: Gait abnormal. Psychiatric: Behavior: Behavior normal. Comments: Depression anxiety Under stress ASSESSMENT/PLAN: Well adult exam (Primary) Screening for cardiovascular condition - LIPID PANEL WITH DIRECT LDL IF TG IS HIGH; Future; Expected date: 07/02/2024 Skin lesion - DERMATOLOGY REFERRAL OP Chronic idiopathic constipation - CBC WITH WBC DIFFERENTIAL; Future; Expected date: 07/02/2024 - COMPREHENSIVE METABOLIC PANEL; Future; Expected date: 07/02/2024 Peripheral polyneuropathy - HEMOGLOBIN A1C; Future; Expected date: 07/02/2024 - EMG Pain in both feet - EMG Family history of prostate cancer in father - PSA; Future; Expected date: 07/02/2024 Urinary incontinence, unspecified type Loss of weight - CBC WITH WBC DIFFERENTIAL; Future; Expected date: 07/02/2024 - COMPREHENSIVE METABOLIC PANEL; Future; Expected date: 07/02/2024 - HEMOGLOBIN A1C; Future; Expected date: 07/02/2024 - TSH WITH FREE T4 IF INDICATED; Future; Expected date: 07/02/2024 Screening for prostate cancer - PSA; Future; Expected date: 07/02/2024 Screen for colon cancer - COLONOSCOPY, GI REFERRAL OP Stress reaction Depression with anxiety Abdominal mass, unspecified abdominal location - CT ABD/PELVIS W IV AND W ORAL CONTRAST Follow Up: Return for Labs Today. | For: Labs Today | Check-out note: CT abd/pelvis, Labs today Colonoscopy , derm referral EMG Assessment & Plan Urinary Incontinence Incontinence possibly linked to stress and family history of prostate cancer. Urgent prostate evaluation needed. - Order PSA test. - Schedule CT scan of abdomen and pelvis. - palpable mass lower abdomen Peripheral Neuropathy Neuropathic pain in feet with possible chronic venous insufficiency. Balance affected. Evaluate fordiabetes and nerve function. - Order A1c test. - Order EMG test for nerve conduction study in legs. Constipation Constipation managed with Senokot tea and hydration. Regular bowel movements reported. - Encourage continued use of Senokot tea as needed. - Ensure adequate hydration. Weight Loss 30-pound weight loss attributed to low calorie intake and stress. Concern for underlying metabolic issues. - Order blood tests including thyroid function tests and A1c. Abdominal Mass Abdominal mass with family history of cancer. Immediate imaging required. - Order CT scan of abdomen and pelvis. Skin Lesion Stable skin lesion under eye. Dermatological evaluation needed. - Refer to new car get ready mechanic. Vision Changes Blurry vision with existing cataracts. Regular ophthalmologic evaluation ongoing. - Refer to nuclear pharmacist. Follow-up Multiple health concerns require follow-up and specialist coordination post-testing. - Schedule follow-up appointment after CT scan and blood test results. - Coordinate with specialists based on test results. Nicholas Meza MD documented in this encounter Nursing Notes * Jo Ann Kruger LPN - 07/02/2024 10:42 AM EDT Chief Complaint Patient presents with Physical-Exam Pt here today for a complete physical documented in this encounter Plan of Treatment Pending Results [...] Loss of weight 07/02/2024 11:46 AM EDT Scheduled Orders Name Type Priority Associated Diagnoses Orde r Schedule LIPID PANEL WITH DIRECT LDL IF TG IS HIGH Lab Routine Screening for cardiovascular condition Expected: 07/02/2024 (Approximate), Expires: 07/02/2025 PSA Lab Routine Family history of prostate cancer in father Screening for prostate cancer Expected: 07/02/2024 (Approximate), Expires: 07/02/2025 CBC WITH WBC DIFFERENTIAL Lab Routine Chronic idiopathic constipation Loss of weight Expected: 07/02/2024 (Approximate), Expires: 07/02/2025 COMPREHENSIVE METABOLIC PANEL Lab Routine Chronic idiopathic constipation Loss of weight Expected: 07/02/2024 (Approximate), Expires: 07/02/2025 HEMOGLOBIN A1C Lab Routine Peripheral polyneuropathy Loss of weight Expected: 07/02/2024 (Approximate), Expires: 07/02/2025 TSH WITH FREE T4 IF INDICATED Lab Routine Loss of weight Expected: 07/02/2024 (Approximate), Expires: 07/02/2025 CT ABD/PELVIS W IV AND W ORAL CONTRAST Medical Imaging Routine Abdominal mass, unspecified abdominal location Ordered: 07/02/2024 Scheduled Referrals Name Type Priority Associated Diagnoses Orde r Schedule COLONOSCOPY, GI REFERRAL OP Referral Within 30 days (routine) Screen for colon cancer Ordered: 07/02/2024 DERMATOLOGY REFERRAL OP Referral Within 30 days (routine) Skin lesion Ordered: 07/02/2024 Health Maintenance Due Date Last Done Comments [...] as of this encounter Visit Diagnoses Diagnosis Well adult exam- Primary Routine general medical examination at a health care facility Screening for cardiovascular condition Screening for other and unspecified cardiovascular conditions Skin lesion Unspecified disorder of skin and subcutaneous tissue Chronic idiopathic constipation Unspecified constipation Peripheral polyneuropathy Unspecified hereditary and idiopathic peripheral neuropathy Pain in both feet Pain in limb Family history of prostate cancer in father Urinary incontinence, unspecified type Loss of weight Screening for prostate cancer Special screening for malignant neoplasm of prostate Screen for colon cancer Special screening for malignant neoplasms, colon Stress reaction Unspecified acute reaction to stress Depression with anxiety Dysthymic disorder Abdominal mass, unspecified abdominal location documented in this encounter Care Teams Environmental Communications Specialist Relationship Specialty Start Date End Date José Roberts MD PCP - General Family Medicine 12/31/17 documented as of this encounter
--- OUTSIDE RECORDS SUMMARY | 2024-07-04 05:48 | External Medical Summary ---
Author Name Unknown Address Unknown Organization [id number]:LABORATORY [facility] [place] - [address] [place] [address] Laboratory Report Ordering Provider Test Date Status RENATE GROSSMAN 07/02/2024 11:46:54 Final Observation Date Value Abnormality Reference (Units ) Status Triglyceride 07/02/2024 11:46:54 131 <=174 ( mg/dL) Final Triglyceride Reference Range s (mg/dL):
<150 Acceptable
150-174 Borderline high
175-499 High
>=500 Very high Cholesterol 07/02/2024 11:46:54 156 <200 (mg /dL) Final Total Cholesterol Reference Ranges (mg/dL):
<200 Desirable
200-239 Borderline high
>=240 High HDL 07/02/2024 11:46:54 32 Below low normal >39 (mg/dL) Final HDL Cholesterol Reference Ra nges (mg/dL):
>=60 High (Desirable)
<50 Low (Undesirable) For Females
<40 Low (Undesirable) For Males NON-HDL CHOLESTEROL 07/02/2024 11:46:54 124 <=159 (mg/dL) Final Non-HDL Cholesterol Referenc e Range (mg/dL):
<100 Target level for high risk ASCVD patient
<130 Optimal for general population
130-159 Near optimal for general population
160-189 Borderline High
190-219 High
>=220 Very High LDL, (calculated) 07/02/2024 11:46:54 98 <= 129 (mg/dL) Final LDL Cholesterol Reference Ra nges (mg/dL):
<70 Target level for high risk ASCVD patient
<100 Optimal for general population
100-129 Near optimal for general population
130-159 Borderline high
160-189 High
>=190 Very high
Patient has high LDL cholesterol. Consider screening for Familial Hypercholesterolemia. Performing Location LABORATORY [facility] [place] - [facility] [address] [facility] [id number]
--- OUTSIDE RECORDS SUMMARY | 2024-07-04 05:48 | External Medical Summary ---
Author Name Unknown Address Unknown Organization [id number]:[place] [facility] [place] [address] [facility] [address] Laboratory Report Ordering Provider Test Date Status RENATE GROSSMAN 07/02/2024 11:46:54 Final Observation Date Value Abnormality Reference (Units ) Status WBC, Total 07/02/2024 11:46:54 8.26 4.00-10.80 (K/uL) Final RBC 07/02/2024 11:46:54 4.03 4.50-5.25 (M/uL) Final Hemoglobin 07/02/2024 11:46:54 11.5 Below low normal 14.0-16.8 (g/dL) Final HCT 07/02/2024 11:46:54 36.2 Below low normal 40.0-48.4 (%) Final MCV 07/02/2024 11:46:54 89.8 82.0-99.5 (fL) Final MCH 07/02/2024 11:46:54 28.5 27.0-34.0 (pg) Final MCHC 07/02/2024 11:46:54 31.8 32.0-36.0 (g/dL) Final RDW 07/02/2024 11:46:54 13.0 11.5-15.5 (%) Final Platelets 07/02/2024 11:46:54 267 140-400 (K/uL) Final MPV 07/02/2024 11:46:54 11.3 6.6-11.1 (fL) Final Nucleated erythrocytes/100 leukocytes [Ratio] in Blood by Automated count 07/02/2024 11:46:54 0 <=0 (/100 WBCs) Final Performing Location [place] [facility] [place] [address] [place] [address]
--- OUTSIDE RECORDS SUMMARY | 2024-07-04 05:48 | External Medical Summary ---
Author Name Unknown Address Unknown Organization [id number]:LABORATORY [facility] [place] - [address] [place] [facility] [place] [address] Laboratory Report Ordering Provider Test Date Status RENATE GROSSMAN 07/02/2024 11:46:54 Final Observation Date Value Abnormality Reference (Units ) Status BUN 07/02/2024 11:46:54 39 Above high normal 6-20 (mg/dL) Final Creatinine 07/02/2024 11:46:54 2.5 Above high normal 0.6-1.2 (mg/dL) Final Glomerular filtration rate/1.73 sq M.predicted [Volume Rate/Area] in Serum, Plasma or Blood by Creatinine-based formula (CKD-EPI) 07/02/2024 11:46:54 29 Below low normal >=60 (mL/min) Final eGFR is calculated based on the CKD-EPI 2020 equation. Sodium 07/02/2024 11:46:54 134 Below low normal 135 -146 (mmol/L) Final Potassium 07/02/2024 11:46:54 4.9 3.5-5.1 (m mol/L) Final Cl 07/02/2024 11:46:54 94 Below low normal 98- 107 (mmol/L) Final CO2 07/02/2024 11:46:54 26 22-32 (mmo l/L) Final Anion gap 07/02/2024 11:46:54 14 7-15 (mmol /L) Final Glucose 07/02/2024 11:46:54 598 Above up per panic limits 70-120 (mg/dL) Final Albumin 07/02/2024 11:46:54 4.4 3.8-5.0 (g /dL) Final AST (Aspartate aminotransferase) 07/02/2024 11:46:54 15 10-50 (U/L) Fin al Alk Phos 07/02/2024 11:46:54 128 35-130 (U/ L) Final Bilirubin, Total 07/02/2024 11:46:54 0.5 <=1 .2 (mg/dL) Final Calcium 07/02/2024 11:46:54 9.9 8.4-10.2 ( mg/dL) Final Protein 07/02/2024 11:46:54 7.3 6.0-8.3 (g /dL) Final ALT (Alanine aminotransferase) 07/02/2024 11:46:54 18 10-50 (U/L) Evan boothe Performing Location LABORATORY [facility] [place] - [address] [facility] [id number]
--- OUTSIDE RECORDS SUMMARY | 2024-07-04 05:48 | External Medical Summary ---
Author Name Unknown Address Unknown Organization [id number][place] [facility] [place] [address] [place] [address] Laboratory Report Ordering Provider Test Date Status RENATE GROSSMAN 07/02/2024 11:46:54 Final Observation Date Value Abnormality Reference (Units ) Status TSH 07/02/2024 11:46:54 3.10 0.27-4.20 (uIU/mL) Final Performing Location [facility] [place] [address] [place] [address]
--- OUTSIDE RECORDS SUMMARY | 2024-07-04 05:48 | External Medical Summary ---
Author Name Unknown Address Unknown Organization K01:LABORATORY [facility] - [address] [place] [address] Laboratory Report Ordering Provider Test Date Status RENATE GROSSMAN 07/02/2024 11:46:54 Final Observation Date Value Abnormality Reference (Units ) Status PSA 07/02/2024 11:46:54 4.20 Above high normal <4 .10 (ng/mL) Final Performing Location LABORATORY [facility] - [address] [place] [address]
[2024-07-04 07:34] LABS: Hematocrit (blood only) 36.1 % (42.0-52.0); Mean Corpuscular Hemoglobin 28.2 pg (25.0-34.0); Mean Corpuscular Hgb Conc 33.2 g/dL (32.0-36.0); Mean Corpuscular Volume 84.9 fL (80.0-100.0); Platelet Count 249 K/uL (130-400); RDW Coefficient of Variation 13.2 % (11.5-14.5); RDW Standard Deviation 40.3 fL (36.4-46.3); Red Blood Count 4.25 M/uL (4.70-6.10); White Blood Count 9.76 K/ul (4.8-10.8)
[2024-07-04 07:43] LABS: BUN Creatinine Ratio 14.7 (10-20); Calcium 9.4 mg/dl (8.6-10.3); Creatinine Clr Calc Pharmacy 48.2 ml/min; Potassium 3.6 mmol/L (3.5-5.1)
[2024-07-04 08:07] LABS: Folate (Folic Acid),Ser orPlas > 22.30 ng/ml (>5.38)
[2024-07-04 08:08] LABS: Vitamin B12 649 pg/ml (180-914)
[2024-07-04] MEDS: LANTUS PER UNIT CHARGE SQ SCH (08:45)
--- NOTE | 2024-07-04 10:57 | Urology Progress Note ---
Date of Service July 04, 2024 Assessment & Plan (1) Urinary retention: Plan: Urinary retention currently managed with indwelling Ramos catheter. This will stay in for 1 to 2 weeks for bladder rest. Urology will coordinate outpatient follow-up for removal/voiding trial, likely CIC teaching. Would recommend discharge on tamsulosin. (2) Renal lesion: Plan: CT scan demonstrated possible complex cysts of the right kidney. Urology will coordinate further outpatient evaluation, likely with MRI. (3) JOSE (acute kidney injury): Plan: Renal function improving with Ramos catheter in place. JOSE was likely obstructive in nature. (4) Enlarged prostate: Plan Urology will coordinate outpatient follow-up for voiding trial and further workup of his renal lesions. Urology will sign off for now, please call with any questions or concerns. Admission and Anticipated Discharge Date Admission Date: July 03, 2024 Subjective Ramos catheter was placed in the emergency department with return of 2 L clear yellow urine, subsequently developed hematuria Feeling okay this morning, nervous about the amount of blood in his catheter Labs reviewed: WBC 9.76, hemoglobin 12.0, creatinine has improved from 2.56 down to 1.7. Blood glucose has improved as well. Physical Exam Physical Exam: Well-appearing, NAD Ramos catheter in place draining zee red urine, no clots in the tubing or bag Results & Data Vital Signs (Past 12 Hours) Vital Signs Temp Pulse Pulse Resp BP Pulse Ox O2 Del Method 07/04/24 07:22 36.8 C 102 H 20 97/69 L 99 Room Air 07/04/24 06:51 102 H 07/04/24 04:00 36.7 C 102 H 17 100/67 93 Room Air PG Care Time/CCT Total # of Minutes Spent Total Time Spent with Patient: Total time spent is greater than 50% in coordination of care (as documented) at patient's floor/unit and/or counseling patient: Coding Level of Care Code 88586 SUB INP/OBS CARE 2/35MIN Diagnoses Urinary retention R33.9 Renal lesion N28.9 JOSE (acute kidney injury) N17.9 Enlarged prostate N40.0
--- NOTE | 2024-07-04 13:21 | Hospitalist Progress Note ---
Date of Service July 04, 2024 Assessment & Plan (1) BPH with urinary obstruction: (2) Acute bilateral obstructive uropathy: (3) Obstructive nephropathy due to benign prostatic hyperplasia: (4) Renal cyst, right: (5) Type 2 diabetes mellitus with hyperglycemia: Plan Patient presented to the emergency room with outpatient labs showing severely uncontrolled glucose due to new diagnosis of diabetes as well as acute kidney rate failure due to obstructive uropathy and nephropathy from presumed BPH. Renal function has significantly improved with Ramos catheter drainage Acute hematuria secondary to the rapid decompression of his bladder, anticipate this will improve with time Renal cysts noted on CT of the abdomen. Will pursue further outpatient follow- up with urology Continue Flomax for BPH, maintain Ramos catheter, Ramos teaching the patient Patient with new diagnosis of diabetes with significantly elevated hemoglobin A1c Dietary/diabetes education, anticipate sending patient home on basal insulin and ongoing outpatient follow-up Communication with urology, no plans for in-hospital intervention this hot this admission, will follow-up closely in the office. Recommending continuing the Flomax Monitor electrolytes and renal function Replace potassium Monitor hemoglobin Anticipate probable discharge tomorrow, to allow time for education and initiation of treatments with patient today Admission and Anticipated Discharge Date Admission Date: July 03, 2024 Subjective Patient feeling better. But concerned about his hematuria. Concerned about how to treat his diabetes. This is all new diagnosis within the last 2 days. Physical Exam Physical Exam: Constitutional: Alert, nontoxic HEENT: Mucous membranes moist. Lungs: Clear to auscultation, decreased, no wheezes rales or rhonchi CV: S1-S2, regular Abdomen: Soft, nontender, nondistended : Ramos catheter in place, significant hematuria Extremities: No significant edema Neuro: No focal deficits Psych: Cooperative, anxious Results & Data Results & Data Vital Signs (Past 12 Hours) Vital Signs Temp Pulse Pulse Resp BP Pulse Ox O2 Del Method 07/04/24 10:57 36.4 C L 94 H 19 120/77 100 Room Air 07/04/24 07:22 36.8 C 102 H 20 97/69 L 99 Room Air 07/04/24 06:51 102 H 07/04/24 04:00 36.7 C 102 H 17 100/67 93 Room Air Diagnostic Findings Reviewed imaging, laboratory and diagnostic studies. Pertinent findings as below. Hemoglobin 12.0 WBCs 9.7 Sodium 139 Potassium 3.6 Carbon dioxide 28 BUN 25 Creatinine 1.70, significantly improved Glucose 173 PSA 5.3 B12, folate within normal ranges Reviewed outside EMR, hemoglobin A1c 16.4%, PSA 4.2
[2024-07-04] MEDS: POTASSIUM CHLORIDE CRTAB 20 MEQ TABCR PO STA (14:48)
--- NOTE | 2024-07-04 14:49 | Pharmacy Report ---
Pharmacy Glycemic Short Note 2 - Date of Service July 04, 2024 - Glycemic Short BSG Results (Last 24 hours): 07/03/24 07/03/24 07/03/24 16:28 21:57 21:59 Glucose 464 H* POC Glucose 446 H* 457 H* 07/04/24 07/04/24 07/04/24 01:07 04:28 07:07 Glucose 173 H POC Glucose 227 H 108 H 07/04/24 07/04/24 08:02 11:54 Glucose POC Glucose 204 H 287 H OUTPATIENT ANTIDIABETIC REGIMEN: * none * HbA1c 16% (07/02/24) ASSESSMENT: * Juan is a 64 year old male admitted with abnormal labs including marked hyperglycemia. He does not have a history of diabetes, but has had blurry vis ion and felt like his BSGs were high. Pharmacy has been consulted to assist with glycemic management while inpatient. * Basal insulin initiated at a weight based stress of 2, will add a scale twice daily to account if BSGs are below goal range. Will aim for a once daily insulin dose once requirements are better known. * NovoLog at a weight based stress of 1.5, carbohydrate ratio tightened to due e levated post-prandials. Correction very quickly overnight with Lantus and NovoLog bolus, correction factor loosened to prevent hypoglycemia. Will also increase goal range due to extent of hyperglycemia outpatient. PLAN FOR INPATIENT GLYCEMIC CONTROL: * Hold outpatient oral diabetes medications * Basal insulin * Lantus 0-16 units SQ BID based on BSG (see eMAR for additional details) * Bolus insulin * NovoLog per scale ACHS or Q6hrs while NPO * Goal Range: Low 140 mg/dL - High 180 mg/dL * Correction Factor: 35 mg/dL/unit * Nutritional / Prandial insulin per carb ratio of 1 unit per 9 grams CHO consumed
[2024-07-04] MEDS: MELATONIN 3 MG TAB PO PRN (21:40)
--- NOTE | 2024-07-04 22:04 | Electrocardiogram Report ---
Test Reason : Blood Pressure : */* mmHG Vent. Rate : 97 BPM Atrial Rate : 97 BPM P-R Int : 144 ms QRS Dur : 90 ms QT Int : 376 ms P-R-T Axes : 46 -28 58 degrees QTcB Int : 477 ms Normal sinus rhythm Normal ECG No previous ECGs available Confirmed by Earnest Srinivasan ([id number]) on 07/04/2024 10:03:46 PM Referred By: Nicholas Meza Confirmed By: Earnest Srinivasan
[2024-07-05 07:50] LABS: Hematocrit (blood only) 37.8 % (42.0-52.0); Hemoglobin 12.6 g/dl (14.0-18.0); Mean Corpuscular Hemoglobin 28.5 pg (25.0-34.0); Mean Corpuscular Hgb Conc 33.3 g/dL (32.0-36.0); Mean Corpuscular Volume 85.5 fL (80.0-100.0); Mean Platelet Volume 10.3 fL (9.4-12.4); Platelet Count 307 K/uL (130-400); RDW Standard Deviation 40.7 fL (36.4-46.3); Red Blood Count 4.42 M/uL (4.70-6.10); White Blood Count 9.07 K/ul (4.8-10.8)
[2024-07-05 08:02] VITALS: RESP 19; TEMP 98.1; O2SAT 97
[2024-07-05 08:06] LABS: BUN Creatinine Ratio 16.8 (10-20); Creatinine Clr Calc Pharmacy 52.8 ml/min; Potassium 4.1 mmol/L (3.5-5.1)
[2024-07-05] MEDS: LANTUS PER UNIT CHARGE SQ ONE (09:01)
[2024-07-05 11:16] VITALS: BP 153/93; PULSE 100
--- NOTE | 2024-07-05 11:19 | Discharge Summary ---
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 Has outpatient appointment scheduled to evaluate Plan Patient is a 64-year-old gentleman who presented to the emergency room after he had outpatient laboratory studies that showed severe hyperglycemia and renal failure. In the emergency room was noted to have significant bladder outlet obstruction due to enlarged prostate. And confirmed laboratory studies for severe hyperglycemia new diagnosis of diabetes. Patient was admitted to the hospital. Ramos catheter was placed and he immediately had 2 L of urine drained from his bladder. He was given some initial fluid resuscitation and started on insulin to manage his diabetes. Patient was seen by urology. Recommended starting Flomax and maintaining Ramos catheter for at least a couple weeks until he can be followed up in the hospital to determine the effectiveness of the Flomax. The patient did have some significant hematuria from the decompression of his bladder. This seems to be improving and he is not having any significant blood loss, hemoglobin is actually improved today of from yesterday. Diabetes education commenced here in the hospital. He was given extensive education on diet, how to check his blood sugars, how to give himself insulin. He was given a glucometer here in the hospital and instructed on its use. With relief of his bladder outlet obstruction his renal function rapidly improved and was returned to baseline. On the day of discharge vital signs are stable. Laboratory studies and stabilized. His glucose significantly improved. He is feeling much more comfortable with glucose finger checks, delivering himself insulin and his new diet. He is extremely motivated to continue to improving and manage his medical issues. He will be discharged home to follow-up with his PCP for ongoing management of his diabetes. He will be started on Lantus nightly and oral metformin. He will follow-up with urology for determination of ongoing care for his Ramos and his prostate issues. Patient is reassured that his hematuria will clear in the next few days. Notes For Next Care Provider Follow-up with urology for ongoing Ramos management. Also ongoing workup and treatment/intervention if indicated on renal cysts Will need ongoing management of new diagnosis of diabetes Check BMP/renal function in 7 to 14 days Medication Changes From Visit Lantus daily Metformin twice daily Admission HPI Per Admitting Provider Patient is 64 year old male without prior diagnosed chronic medical conditions presented to ER with c/o abnormal outpatient labs. Per outpatient chart review patient was seen as new patient yesterday 07/02/24 at [facility] after not being seen for years. Patient reports 30 pound weight loss over past year. States food not tasting good to him anymore. He reports he suspected his BSG elevated as he has been having some intermittent blurry vision and having pain and tingling in both feet for months. Since he suspected elevated glucose he has been trying to avoid sugar and eat more vegetables but reports does not like the taste of vegetables. He states he just doesn't want to prepare meals so often doesn't eat much. He states he has been under a lot of stress over the past several years with the passing of his father and stress with his father's estate. Reports been having constipation for past 6-7 months. Reported urinary incontinence for past several months. States abdomen only feels uncomfortable when dog jumps on his abdomen. He states has been feeling more fatigued and generally more weak. Yesterday in outpatient clinic there was concern for palpated abdominal mass and concern for undiagnosed DM and labs and CT abd/pelvis ordered. Today labs reviewed and patient referred to ER for JOSE, hyperglycemia, and CT abd/pelvis with bladder distension and concern for obstruction. Denies fever/chills, diaphoresis, N/V/D, JOINER, dizziness, syncope, neck pain, CP, SOB, palpitations, cough, sore throat, rhinorrhea, back pain, extremity edema, rashes, dysuria, hematuria. Admission Exam Per Admitting Provider See H&P Discharge Exam Constitutional: Alert, nontoxic HEENT: Mucous membranes moist. Lungs: Clear to auscultation, decreased, no wheezes rales or rhonchi CV: S1-S2, regular Abdomen: Soft, nontender, nondistended Extremities: No significant edema Neuro: No focal deficits Psych: Cooperative, normal mood Updated Medication List Medication Instructions Recorded Confirmed Type rkrojskohyvi-jkv-lccrf acid-vit 1 tab PO DAILY 07/03/24 07/03/24 History K-lycop 400 mcg-20 mcg-370 mcg tablet (Men's 50 Plus Multivitamin) insulin glargine 100 unit/mL (3 20 unit (0.2 mL) subcut .qhs #15 mL 07/05/24 Rx mL) subcutaneous pen (Lantus Solostar U-100 Insulin) metformin 500 mg tablet 500 mg PO BID #60 tabs 07/05/24 Rx pen needle, diabetic 32 gauge x #100 ea 07/05/24 Rx 32" tamsulosin 0.4 mg capsule 0.4 mg PO QAM #30 caps 07/05/24 Rx Hospital Stay Data Consultations 07/03/24 18:23 ED Decision to Admit Stat 07/04/24 07:00 Consult Urology Routine Diagnostic Imagining Performed 07/03/24 20:16 CT renal wo con Routine Reviewed imaging, laboratory and diagnostic studies. Pertinent findings as below. WBCs 9.0 Hemoglobin 12.6 Electrolytes within normal range Creatinine 1.55, significantly improved Glucose [address]- 2 cystic lesions on the right kidney 1 appears to be a more simple cyst the other more complex Pending Results Patient Have Any Pending Studies at Discharge: No Discharge Instructions Given to Patient (Per Discharging Provider) Follow-up with urology as coordinated through their office, they will coordinate your Ramos care. They will also follow-up with your kidney cyst Follow-up with your PCP for ongoing care of your diabetes Ramos care as instructed Check your sugar 2 times daily or as instructed by the hospice educator. Keep a log of your readings and take to your primary care provider office visits Have your kidney function checked in approximately 7 to 14 days through your PCP Keep your appointment for evaluation of the lesion under your right eye Total Time Total Time Spent Total Time Spent (In Minutes): 45
== END 2024-07-05 15:43 | disposition home or self-care (01) | DRG 726 ==
LOC: ED 15:54 → SUATTDRO 19:24 → 2W 19:24